=== PATIENT | female | born 1975 | race Hispanic/Latino ===

== ENCOUNTER 2019-08-01 01:29 | Emergency (ER) | payer OTHER ==
[2019-08-01] MEDS ORDERED: Lidocaine 1% w/Epinephrine 1:100K 20 ML VIAL ONE ×2 (02:19→02:41)
[2019-08-01] MEDS ORDERED: Tranexamic Acid 1,000 MG/10 ML VIAL ONE (03:09)
[2019-08-01] MEDS ORDERED: Acetaminophen 500 MG TAB ONE (04:06)
[2019-08-01] MEDS ORDERED: Ondansetron ODT 4 MG TAB ONE (04:16)
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
== END 2019-08-01 04:34 | disposition home or self-care (01) ==
LOC: ERS 01:29
DX: S02.5XXA Fracture of tooth (traumatic), initial encounter for closed fracture (principal); S01.511A Laceration without foreign body of lip, initial encounter; I10 Essential (primary) hypertension; Y04.0XXA Assault by unarmed brawl or fight, initial encounter
CPT/HCPCS: 12011; 70486; J2001; Q0162

== ENCOUNTER 2020-04-13 16:55 | Emergency (ER) | payer OTHER ==
[2020-04-13] MEDS ORDERED: HYDROcodone/Acetaminophen 5/325 mg Tablet ONE (17:16)
[2020-04-13 17:37] LABS: #Eosinphils 0.1 thou/uL (0.0-0.7); #Lymphocytes 1.3 thou/uL (1.20-3.40); #Monocytes 0.6 thou/uL (0.11-0.59); #Neutrophils 9.7 thou/uL (1.40-6.50); %Basophils 0.1 % (0.0-1.0); %Eosinophils 1.3 % (0.0-10.0); %Monocytes 5.3 % (0.0-10.0); %Neutrophils 82.4 % (42.0-75.0); Hemoglobin 7.3 g/dL (12.0-16.0); Mean Corpuscular HGB CONC 28.3 g/dL (32.0-36.0); Mean Corpuscular Hemoglobin 19.7 pg (27.0-31.0); Mean Corpuscular Volume 69.5 fL (78.0-98.0); Mean Platelet Volume 8.9 fL (7.4-10.4); Platelet Count 321 thou/uL (130-400); RBC Distribution Width 16.7 % (11.5-14.5); White Blood Cell (WBC) Count 11.7 thou/uL (4.8-10.8)
[2020-04-13 17:56] LABS: Anisocytosis SLIGHT = 6-15 cells (100X) (0-5/hpf); Hypochromia SLIGHT = 6-15 cells (100X) (0-5/hpf); MDiff Complete? YES; Ovalocytes SLIGHT = 2-5 cells (100X) (0-1/hpf); Platelet Morphology Comment Appears Adequate; Polychromasia SLIGHT = 2-3 cells (100X) (0-2/hpf); Spherocytes SLIGHT = 1-5 cells (100X) (None Seen); Tear Drops SLIGHT = 2-5 cells (100X) (0-1/hpf)
[2020-04-13 18:04] LABS: ALT (SGPT) 11 U/L (8-55); AST (SGOT) 14 U/L (5-34); Alkaline Phosphatase 211 U/L (40-110); Anion Gap 17 mmol/L (10-20); BUN (Urea Nitrogen) 44 mg/dL (7.0-18.7); Bilirubin, Total 0.5 mg/dL (0.2-1.2); Calc. Creatinine Clearance 0 mL/min (70-130); Carbon Dioxide 20 mmol/L (22-29); Chloride 101 mmol/L (98-107); Estimated GFR-MDRD 10; Globulin 4.4 g/dL (2.4-3.5); Glucose 107 mg/dL (70-105); Protein, Total 8.4 g/dL (6.0-8.3); Sodium 134 mmol/L (136-145)
--- NOTE | 2020-04-13 18:23 | RAD ---
LEFT HAND THREE VIEWS: 04/13/20 HISTORY: Injury. FINDINGS: Joint spaces are preserved. No acute fracture, dislocation, or aggressive osseous erosions. IMPRESSION: No abnormalities are demonstrated. POS: BST
== END 2020-04-13 18:47 | disposition home or self-care (01) ==
LOC: ERS 16:55
DX: M25.511 Pain in right shoulder (principal); M25.512 Pain in left shoulder; M25.541 Pain in joints of right hand; I10 Essential (primary) hypertension; D64.9 Anemia, unspecified; Z79.899 Other long term (current) drug therapy
CPT/HCPCS: 36415; 80053; 85025; 85652; 86140

== ENCOUNTER 2020-11-28 12:33 | Emergency (ER) | payer OTHER | END 2020-11-28 14:10 | disposition home or self-care (01) | LOC: ERS 12:33 | DX: L03.116 Cellulitis of left lower limb (principal); L03.115 Cellulitis of right lower limb; L25.9 Unspecified contact dermatitis, unspecified cause; M06.9 Rheumatoid arthritis, unspecified; I10 Essential (primary) hypertension; Z79.899 Other long term (current) drug therapy | CPT/HCPCS: 99283 ==

== ENCOUNTER 2022-12-14 11:56 | Inpatient (IN) | payer OTHER ==
[2022-12-14 13:23] LABS: Analyzer IN Cardio ER; Base Excess (BEa) -18.9 mEq/L (-2.0 to +3.0); Calcium, Ionized (arterial) 1.09 mmol/L (1.12-1.30); Carboxyhemoglobin (COHb) 1.8 gm% (0.0-3.0); O2 Tension (PaO2), arterial 83.1 mmHg (80.0-100.0); Potassium - ABG Lab 5.37 mmol/L (3.70-5.30)
[2022-12-14 13:28] LABS: CO2 Tension 22.6 mmHg (35.0-45.0); Puncture Site RRA; pH, Arterial 7.17 (7.35-7.45)
[2022-12-14] MEDS ORDERED: cefTRIAXone\\ROCEPHIN 2 GM VIAL ONE ×2 (13:44→14:06)
[2022-12-14] MEDS ORDERED: Azithromycin 500 MG VIAL ONE (13:44)
[2022-12-14 13:56] LABS: Hemoglobin 6.5 g/dL (12.0-16.0); Mean Corpuscular HGB CONC 31.4 g/dL (32.0-36.0); Mean Corpuscular Hemoglobin 27.2 pg (27.0-31.0); Mean Corpuscular Volume 86.8 fl (78.0-98.0); Mean Platelet Volume 7.9 fL (7.4-10.4); Platelet Count 135 10x3/uL (130-400); Red Blood Cell (RBC) Count 2.39 mill/uL (4.20-5.40); White Blood Cell (WBC) Count 28.4 10x3/uL (4.8-10.8)
[2022-12-14 14:11] LABS: Anisocytosis SLIGHT = 6-15 cells (100X) (0-5/hpf); Band 28 % (5-11); Lymphocytes 3 % (21-51); MDiff Complete? YES; Metamyelocyte 6 % (0-0); Monocytes 1 % (0-10); Myelocyte 2 % (0-0); Neutrophil 60 % (42-75); Platelet Morphology Comment Appears Adequate; Polychromasia SLIGHT = 2-3 cells (100X) (0-2/hpf)
[2022-12-14 14:12] LABS: PTT 43.7 sec (22.9-36.1)
[2022-12-14 14:13] LABS: INR-International Normal Ratio 1.5; Prothrombin Time 18.6 sec (12.0-14.7)
[2022-12-14] MEDS ORDERED: Ondansetron PF 4 MG/2 ML Vial ONE (14:16)
[2022-12-14] MEDS ORDERED: Morphine 4 MG/ML VIAL ONE ×2 (14:16→15:18)
[2022-12-14 14:20] LABS: D-Dimer Test 3.31 *mcg/mL (0.27-0.43)
[2022-12-14] MEDS ORDERED: Aspirin Chewable 81 MG TAB ONE (14:28)
[2022-12-14 14:34] LABS: ALT (SGPT) 10 U/L (8-55); AST (SGOT) 11 U/L (5-34); Albumin 3.5 g/dL (3.5-5.0); Alkaline Phosphatase 116 U/L (40-110); Anion Gap 23 mmol/L (10-20); BUN (Urea Nitrogen) 112 mg/dL (7.0-18.7); Bilirubin, Total 0.5 mg/dL (0.2-1.2); Calc. Creatinine Clearance 0 mL/min (70-130); Calcium 8.2 mg/dL (7.8-10.44); Chloride 108 mmol/L (98-107); Estimated GFR 4; Glucose 106 mg/dL (70-105); Potassium 5.5 mmol/L (3.5-5.1); Protein, Total 7.5 g/dL (6.0-8.3); Sodium 134 mmol/L (136-145)
[2022-12-14 14:52] LABS: CKMB 3.8 ng/mL (0-6.6); Carbon Dioxide 9 mmol/L (22-29)
[2022-12-14] MEDS ORDERED: Sodium Bicarb 50 MEQ/50 ML VIAL ONE (15:41)
[2022-12-14] MEDS ORDERED: Sodium Bicarbonate 150 MEQ in Dextrose 5% in Water 1,000 ML IV SCH (16:00)
[2022-12-14 16:34] VITALS: BMI 31.2
[2022-12-14] MEDS ORDERED: Ondansetron PF 4 MG/2 ML Vial IVP PRN (17:02)
[2022-12-14] MEDS ORDERED: Ipratropium/Albuterol 3 ML NEB NEB PRN (17:06)
[2022-12-14 17:37] LABS: BUN (Urea Nitrogen) 112 mg/dL (7.0-18.7); Calc. Creatinine Clearance 9 mL/min (70-130); Calcium 8.1 mg/dL (7.8-10.44); Chloride 110 mmol/L (98-107); Estimated GFR 4; Glucose 91 mg/dL (70-105); Potassium 5.4 mmol/L (3.5-5.1); Sodium 133 mmol/L (136-145)
[2022-12-14 17:40] LABS: Carbon Dioxide Less than 8 mmol/L (22-29)
[2022-12-14] MEDS: Morphine 4 MG/ML VIAL SLOW IVP PRN ×2 (18:40→22:29)
[2022-12-14] MEDS: EPOETIN ALFA-EPBX (ESRD) 10,000 UNIT/ML VIAL SC SCH (18:40)
[2022-12-14] MEDS: Sodium Bicarbonate 150 MEQ in Dextrose 5% in Water 1,000 ML IV SCH (18:41)
[2022-12-14] MEDS: Heparin 5,000 UNITS/ML VIAL SC SCH (21:25)
[2022-12-14] MEDS: Benzonatate 100 MG CAP PO PRN (21:25)
[2022-12-15 03:51] LABS: Anion Gap 21 mmol/L (10-20); BUN (Urea Nitrogen) 117 mg/dL (7.0-18.7); Calc. Creatinine Clearance 9 mL/min (70-130); Calcium 8.5 mg/dL (7.8-10.44); Carbon Dioxide 11 mmol/L (22-29); Chloride 106 mmol/L (98-107); Estimated GFR 4; Glucose 133 mg/dL (70-105); Potassium 4.9 mmol/L (3.5-5.1); Sodium 133 mmol/L (136-145)
[2022-12-15 04:46] LABS: Anisocytosis SLIGHT = 6-15 cells (100X) (0-5/hpf); Band 24 % (5-11); Hemoglobin 7.5 g/dL (12.0-16.0); Lymphocytes 8 % (21-51); MDiff Complete? YES; Mean Corpuscular Hemoglobin 28.6 pg (27.0-31.0); Mean Corpuscular Volume 86.7 fl (78.0-98.0); Mean Platelet Volume 8.1 fL (7.4-10.4); Metamyelocyte 4 % (0-0); Monocytes 2 % (0-10); Neutrophil 62 % (42-75); Platelet Count 136 10x3/uL (130-400); Platelet Morphology Comment Appears Adequate; RBC Distribution Width 14.8 % (11.5-14.5); Red Blood Cell (RBC) Count 2.64 mill/uL (4.20-5.40); White Blood Cell (WBC) Count 23.4 10x3/uL (4.8-10.8)
[2022-12-15] MEDS: Sodium Bicarbonate 150 MEQ in Dextrose 5% in Water 1,000 ML IV SCH ×2 (05:04→16:04)
[2022-12-15] MEDS: Benzonatate 100 MG CAP PO PRN (06:12)
[2022-12-15] MEDS: Aspirin 81 mg Enteric Coated Tablet PO SCH (08:28)
[2022-12-15] MEDS: Benzonatate 100 MG CAP PO SCH ×3 (08:29→21:00)
[2022-12-15] MEDS: Linezolid 600 MG in Premix Bag 1 BAG IVPB SCH ×2 (08:29→21:00)
[2022-12-15] MEDS: Carvedilol 6.25 MG TAB PO SCH ×2 (08:29→16:04)
[2022-12-15] MEDS: Ferrous Sulfate 325 MG TAB PO SCH ×2 (08:29→16:04)
[2022-12-15] MEDS: Ipratropium/Albuterol 3 ML NEB NEB SCH ×4 (08:29→23:28)
[2022-12-15] MEDS: guaiFENesin 200 MG TAB PO PRN (08:29)
[2022-12-15] MEDS: Heparin 5,000 UNITS/ML VIAL SC SCH ×3 (08:30→21:01)
[2022-12-15] MEDS ORDERED: Metoclopramide HCl 10 MG/2 ML VIAL IVP PRN (10:57)
[2022-12-15] MEDS: Morphine 4 MG/ML VIAL SLOW IVP PRN ×2 (12:20→22:03)
[2022-12-15 13:13] LABS: SARS-CoV-2 NAA Rapid Test Not Detected (NotDetected)
[2022-12-15] MEDS: cefTRIAXone\\ROCEPHIN 2 GM in Sodium Chloride 0.9% 100 ML IVPB SCH (13:58)
[2022-12-15] MEDS: Azithromycin 500 MG in Sodium Chloride 0.9% 250 ML 250 ML IVPB SCH (13:58)
[2022-12-15] MEDS: Acetaminophen 325 MG TAB PO PRN (17:53)
[2022-12-15] MEDS ORDERED: Famotidine 20 MG TAB PO SCH (21:00)
[2022-12-16] MEDS: guaiFENesin 200 MG TAB PO PRN (03:02)
[2022-12-16] MEDS: Morphine 4 MG/ML VIAL SLOW IVP PRN (03:02)
[2022-12-16] MEDS: Sodium Bicarbonate 150 MEQ in Dextrose 5% in Water 1,000 ML IV SCH ×2 (03:18→15:43)
[2022-12-16 04:35] LABS: Anion Gap 22 mmol/L (10-20); BUN (Urea Nitrogen) 120 mg/dL (7.0-18.7); Calc. Creatinine Clearance 10 mL/min (70-130); Carbon Dioxide 14 mmol/L (22-29); Chloride 100 mmol/L (98-107); Estimated GFR 4; Glucose 105 mg/dL (70-105); Potassium 4.1 mmol/L (3.5-5.1); Sodium 132 mmol/L (136-145)
[2022-12-16 05:23] LABS: Band 38 % (5-11); Hemoglobin 6.8 g/dL (12.0-16.0); Hypochromia SLIGHT = 6-15 cells (100X) (0-5/hpf); Lymphocytes 2 % (21-51); MDiff Complete? YES; Mean Corpuscular HGB CONC 32.5 g/dL (32.0-36.0); Mean Corpuscular Hemoglobin 28.4 pg (27.0-31.0); Mean Corpuscular Volume 87.6 fl (78.0-98.0); Mean Platelet Volume 8.1 fL (7.4-10.4); Metamyelocyte 1 % (0-0); Neutrophil 59 % (42-75); Platelet Count 144 10x3/uL (130-400); Platelet Morphology Comment Appears Adequate; RBC Distribution Width 14.8 % (11.5-14.5); Red Blood Cell (RBC) Count 2.38 mill/uL (4.20-5.40); White Blood Cell (WBC) Count 18.6 10x3/uL (4.8-10.8)
[2022-12-16] MEDS: Ipratropium/Albuterol 3 ML NEB NEB SCH ×3 (07:22→19:40)
[2022-12-16] MEDS: Docusate 100 MG CAP PO SCH ×2 (09:52→21:45)
[2022-12-16] MEDS: Ferrous Sulfate 325 MG TAB PO SCH ×2 (09:52→16:24)
[2022-12-16] MEDS: Polyethylene Glycol 3350 17 GM Packet PO SCH (09:52)
[2022-12-16] MEDS: Heparin 5,000 UNITS/ML VIAL SC SCH ×3 (09:52→21:43)
[2022-12-16] MEDS: Carvedilol 6.25 MG TAB PO SCH ×2 (09:53→16:23)
[2022-12-16] MEDS: Linezolid 600 MG in Premix Bag 1 BAG IVPB SCH (09:53)
[2022-12-16] MEDS: Benzonatate 100 MG CAP PO SCH ×3 (09:53→21:45)
[2022-12-16] MEDS: Aspirin 81 mg Enteric Coated Tablet PO SCH (09:53)
[2022-12-16] MEDS: cefTRIAXone\\ROCEPHIN 2 GM in Sodium Chloride 0.9% 100 ML IVPB SCH (15:43)
[2022-12-16] MEDS: Azithromycin 500 MG in Sodium Chloride 0.9% 250 ML 250 ML IVPB SCH (15:43)
[2022-12-16] MEDS: Acetaminophen 325 MG TAB PO PRN (21:50)
[2022-12-17] MEDS: Ipratropium/Albuterol 3 ML NEB NEB SCH ×4 (01:14→19:26)
[2022-12-17] MEDS: Sodium Bicarbonate 150 MEQ in Dextrose 5% in Water 1,000 ML IV SCH ×2 (02:22→20:50)
[2022-12-17 04:41] LABS: Anion Gap 21 mmol/L (10-20); BUN (Urea Nitrogen) 113 mg/dL (7.0-18.7); Calc. Creatinine Clearance 10 mL/min (70-130); Calcium 8.2 mg/dL (7.8-10.44); Carbon Dioxide 20 mmol/L (22-29); Chloride 98 mmol/L (98-107); Estimated GFR 4; Glucose 98 mg/dL (70-105); Potassium 3.8 mmol/L (3.5-5.1); Sodium 135 mmol/L (136-145)
[2022-12-17 04:59] LABS: HBSAg Index 0.19 S/CO (0-0.99); Hep B Core Total Ab Non-Reactive (NonReactive); Hep B Core Total Index 0.08 S/CO (0-0.79); Hep B Surf Ag Non-Reactive S/CO (NonReactive); Hep C IgG Ab Non-Reactive (NonReactive); Hep C Index 0.04 S/CO (0-0.79)
[2022-12-17 05:06] LABS: HBSAB Concentration 19.89 mIU/mL; Hep B Surf AB Reactive (NonReactive)
[2022-12-17 05:09] LABS: Anisocytosis SLIGHT = 6-15 cells (100X) (0-5/hpf); Band 11 % (5-11); Hemoglobin 7.3 g/dL (12.0-16.0); Lymphocytes 9 % (21-51); MDiff Complete? YES; Mean Corpuscular HGB CONC 33.1 g/dL (32.0-36.0); Mean Corpuscular Volume 87.6 fl (78.0-98.0); Mean Platelet Volume 8.5 fL (7.4-10.4); Monocytes 1 % (0-10); Neutrophil 79 % (42-75); Platelet Count 169 10x3/uL (130-400); Platelet Morphology Comment Appears Adequate; RBC Distribution Width 14.8 % (11.5-14.5); Red Blood Cell (RBC) Count 2.53 mill/uL (4.20-5.40); White Blood Cell (WBC) Count 15.8 10x3/uL (4.8-10.8)
[2022-12-17] MEDS: Acetaminophen 325 MG TAB PO PRN ×3 (05:44→20:52)
[2022-12-17] MEDS: Benzonatate 100 MG CAP PO SCH ×3 (09:30→20:50)
[2022-12-17] MEDS: Carvedilol 6.25 MG TAB PO SCH ×3 (09:30→20:50)
[2022-12-17] MEDS: Aspirin 81 mg Enteric Coated Tablet PO SCH (09:31)
[2022-12-17] MEDS: Ferrous Sulfate 325 MG TAB PO SCH ×2 (09:32→17:16)
[2022-12-17] MEDS: Docusate 100 MG CAP PO SCH ×2 (09:32→20:51)
[2022-12-17] MEDS: Heparin 5,000 UNITS/ML VIAL SC SCH ×3 (09:33→20:51)
[2022-12-17] MEDS: Polyethylene Glycol 3350 17 GM Packet PO SCH (09:34)
[2022-12-17] MEDS ORDERED: Fentanyl 100 MCG/2 ML VIAL SLOW IVP PRN (12:56)
[2022-12-17] MEDS ORDERED: HYDROcodone/Acetaminophen 5/325 mg Tablet PO PRN (12:56)
[2022-12-17] MEDS ORDERED: Cepastat Lozenges 1 LOZ PO PRN (12:57)
[2022-12-17] MEDS ORDERED: Chloraseptic Spray 180 ml Bottle PO PRN (12:57)
[2022-12-17] MEDS ORDERED: Famotidine 20 MG TAB PO SCH ×2 (13:00→21:00)
[2022-12-17] MEDS: Ondansetron ODT 4 MG TAB PO PRN (13:25)
[2022-12-17] MEDS: Calcium Carbonate 500 MG ChewTAB PO PRN ×2 (13:25→18:03)
[2022-12-17] MEDS: cefTRIAXone\\ROCEPHIN 2 GM in Sodium Chloride 0.9% 100 ML IVPB SCH (13:28)
[2022-12-17] MEDS ORDERED: Labetalol HCl 100 MG/20 ML VIAL SLOW IVP PRN (13:35)
[2022-12-17] MEDS: hydrALAZINE 25 MG TAB PO SCH ×2 (13:46→20:51)
[2022-12-17] MEDS: Triple Antibiotic Oint 1 GM Packet TOP SCH ×2 (17:16→20:52)
[2022-12-17] MEDS: guaiFENesin ER 600 MG TAB PO SCH (20:51)
[2022-12-17] MEDS: Nystatin Powder 15 GM BOT TOP SCH (23:32)
[2022-12-18] MEDS: Ipratropium/Albuterol 3 ML NEB NEB SCH ×4 (00:46→15:54)
[2022-12-18] MEDS: Ondansetron PF 4 MG/2 ML Vial IVP PRN ×2 (03:31→14:50)
[2022-12-18] MEDS: Acetaminophen 325 MG TAB PO PRN ×3 (03:35→21:47)
[2022-12-18 04:40] LABS: Anion Gap 19 mmol/L (10-20); BUN (Urea Nitrogen) 114 mg/dL (7.0-18.7); Calc. Creatinine Clearance 10 mL/min (70-130); Carbon Dioxide 23 mmol/L (22-29); Chloride 95 mmol/L (98-107); Estimated GFR 5; Glucose 105 mg/dL (70-105); Potassium 3.6 mmol/L (3.5-5.1); Sodium 133 mmol/L (136-145)
[2022-12-18] MEDS: Sodium Bicarbonate 150 MEQ in Dextrose 5% in Water 1,000 ML IV SCH (04:40)
[2022-12-18 04:58] LABS: Hemoglobin 7.7 g/dL (12.0-16.0); MDiff Complete? YES; Mean Corpuscular HGB CONC 32.1 g/dL (32.0-36.0); Mean Corpuscular Hemoglobin 28.3 pg (27.0-31.0); Mean Corpuscular Volume 88.2 fl (78.0-98.0); Mean Platelet Volume 7.9 fL (7.4-10.4); Platelet Count 185 10x3/uL (130-400); RBC Distribution Width 14.6 % (11.5-14.5); Red Blood Cell (RBC) Count 2.71 mill/uL (4.20-5.40); White Blood Cell (WBC) Count 12.6 10x3/uL (4.8-10.8)
[2022-12-18 04:59] LABS: Band 2 % (5-11); Eosinophils 3 % (0-10); Hypochromia SLIGHT = 6-15 cells (100X) (0-5/hpf); Lymphocytes 7 % (21-51); Monocytes 4 % (0-10); Neutrophil 84 % (42-75); Platelet Morphology Comment Appears Adequate
[2022-12-18] MEDS: hydrALAZINE 25 MG TAB PO SCH ×3 (08:59→21:45)
[2022-12-18] MEDS: Saccharomyces boulardii 250 MG CAP PO SCH (09:01)
[2022-12-18] MEDS: Aspirin 81 mg Enteric Coated Tablet PO SCH (09:01)
[2022-12-18] MEDS: Docusate 100 MG CAP PO SCH ×2 (09:01→21:45)
[2022-12-18] MEDS: Ferrous Sulfate 325 MG TAB PO SCH (09:01)
[2022-12-18] MEDS: guaiFENesin ER 600 MG TAB PO SCH ×2 (09:02→21:45)
[2022-12-18] MEDS: Benzonatate 100 MG CAP PO SCH ×3 (09:02→21:45)
[2022-12-18] MEDS: Triple Antibiotic Oint 1 GM Packet TOP SCH ×3 (09:02→21:46)
[2022-12-18] MEDS: Heparin 5,000 UNITS/ML VIAL SC SCH ×3 (09:03→21:45)
[2022-12-18] MEDS: Sodium Bicarbonate Tab 325 MG TAB PO SCH ×2 (09:10→21:46)
[2022-12-18] MEDS: Polyethylene Glycol 3350 17 GM Packet PO SCH (09:11)
[2022-12-18] MEDS: cefTRIAXone\\ROCEPHIN 2 GM in Sodium Chloride 0.9% 100 ML IVPB SCH (14:51)
[2022-12-18] MEDS: Nystatin Powder 15 GM BOT TOP SCH ×2 (14:51→21:46)
[2022-12-18] MEDS ORDERED: CEFAZOLIN 2 GM in Sodium Chloride 0.9% 100 ML IVPB SCH (15:30)
[2022-12-18] MEDS ORDERED: Ipratropium/Albuterol 3 ML NEB ONE (15:53)
[2022-12-18] MEDS: Carvedilol 25 MG TAB PO SCH (16:30)
[2022-12-18] MEDS: Aspirin/APAP/Caffeine Tab (Excedrin Migraine) PO PRN (17:33)
[2022-12-18] MEDS: Famotidine 20 MG TAB PO SCH (21:45)
[2022-12-19] MEDS: Ipratropium/Albuterol 3 ML NEB NEB SCH ×4 (00:10→19:17)
[2022-12-19 05:17] LABS: Phosphorus 8.6 mg/dL (2.3-4.7)
[2022-12-19 05:19] LABS: Anion Gap 22 mmol/L (10-20); BUN (Urea Nitrogen) 118 mg/dL (7.0-18.7); Calc. Creatinine Clearance 10 mL/min (70-130); Calcium 8.4 mg/dL (7.8-10.44); Carbon Dioxide 22 mmol/L (22-29); Chloride 96 mmol/L (98-107); Estimated GFR 4; Glucose 93 mg/dL (70-105); Potassium 3.8 mmol/L (3.5-5.1); Sodium 136 mmol/L (136-145)
[2022-12-19 05:40] LABS: Band 1 % (5-11); Hemoglobin 8.1 g/dL (12.0-16.0); Lymphocytes 8 % (21-51); MDiff Complete? YES; Mean Corpuscular HGB CONC 32.3 g/dL (32.0-36.0); Mean Corpuscular Hemoglobin 28.6 pg (27.0-31.0); Mean Corpuscular Volume 88.6 fl (78.0-98.0); Monocytes 5 % (0-10); Neutrophil 86 % (42-75); Platelet Count 199 10x3/uL (130-400); Platelet Morphology Comment Appears Adequate; RBC Distribution Width 14.6 % (11.5-14.5); Red Blood Cell (RBC) Count 2.83 mill/uL (4.20-5.40); Schistocytes SLIGHT = 2-5 cells (100X) (0-1/hpf); White Blood Cell (WBC) Count 13.7 10x3/uL (4.8-10.8)
[2022-12-19] MEDS: Carvedilol 25 MG TAB PO SCH ×2 (05:55→16:41)
[2022-12-19] MEDS: hydrALAZINE 25 MG TAB PO SCH ×3 (08:18→22:00)
[2022-12-19] MEDS: Benzonatate 100 MG CAP PO SCH ×3 (08:24→21:59)
[2022-12-19] MEDS: guaiFENesin ER 600 MG TAB PO SCH ×2 (08:24→22:00)
[2022-12-19] MEDS ORDERED: Midazolam HCl 2 mg/2 ml Vial ONE (10:51)
[2022-12-19] MEDS ORDERED: fentaNYL PF 100 MCG/2 ML SYRINGE ONE (10:52)
[2022-12-19] MEDS ORDERED: Propofol 500 MG/50 ML VIAL ONE (10:52)
[2022-12-19] MEDS ORDERED: Lidocaine 2% PF 5 ML VIAL ONE (10:54)
[2022-12-19] MEDS ORDERED: Heparin 10,000 UNITS/ 10 ML VIAL ONE ×2 (10:54→13:58)
[2022-12-19] MEDS ORDERED: Bupivacaine HCl 0.5%/Epinephrine 1:200,000/PF 30 ml Vial ONE (10:54)
[2022-12-19] MEDS ORDERED: CEFAZOLIN 2 GM VIAL ONE (11:19)
[2022-12-19] MEDS ORDERED: Sodium Chloride 0.9% 100 ML ONE (11:19)
[2022-12-19] MEDS ORDERED: Lidocaine 1% PF 5 ML VIAL ONE (11:30)
[2022-12-19] MEDS ORDERED: PROPOFOL 200 MG/20 ML VIAL ONE (11:30)
[2022-12-19] MEDS ORDERED: Promethazine HCl 25 MG/ML VIAL IM PRN (12:13)
[2022-12-19] MEDS ORDERED: Ondansetron HCl/PF 4 MG/2 ML Vial IVP PRN (12:13)
[2022-12-19] MEDS: Sevelamer Carbonate 800 MG TAB PO SCH ×3 (16:02→16:41)
[2022-12-19] MEDS: Docusate 100 MG CAP PO SCH ×2 (16:03→21:59)
[2022-12-19] MEDS: Polyethylene Glycol 3350 17 GM Packet PO SCH (16:04)
[2022-12-19] MEDS: Triple Antibiotic Oint 1 GM Packet TOP SCH ×3 (16:06→22:01)
[2022-12-19] MEDS: Heparin 5,000 UNITS/ML VIAL SC SCH ×3 (16:06→22:00)
[2022-12-19] MEDS: Aspirin 81 mg Enteric Coated Tablet PO SCH (16:14)
[2022-12-19] MEDS: Nystatin Powder 15 GM BOT TOP SCH ×2 (16:15→22:01)
[2022-12-19] MEDS: Saccharomyces boulardii 250 MG CAP PO SCH (16:15)
[2022-12-19] MEDS: Sodium Bicarbonate Tab 325 MG TAB PO SCH ×2 (16:16→22:01)
[2022-12-19] MEDS: cefTRIAXone\\ROCEPHIN 2 GM in Sodium Chloride 0.9% 100 ML IVPB SCH (16:16)
[2022-12-19] MEDS: Acetaminophen 325 MG TAB PO PRN (16:36)
[2022-12-19] MEDS: Ondansetron ODT 4 MG TAB PO PRN (16:36)
[2022-12-19] MEDS: Aspirin/APAP/Caffeine Tab (Excedrin Migraine) PO PRN (17:49)
[2022-12-19] MEDS: Famotidine 20 MG TAB PO SCH (21:59)
[2022-12-19] MEDS: Acetaminophen 500 MG TAB PO SCH (22:04)
[2022-12-20] MEDS: Ipratropium/Albuterol 3 ML NEB NEB SCH ×4 (00:33→18:29)
[2022-12-20] MEDS: Aspirin/APAP/Caffeine Tab (Excedrin Migraine) PO PRN (00:57)
[2022-12-20] MEDS ORDERED: Morphine 2 MG/ML VIAL SLOW IVP SCH ×2 (05:15→22:45)
[2022-12-20 05:41] LABS: Anion Gap 19 mmol/L (10-20); BUN (Urea Nitrogen) 95 mg/dL (7.0-18.7); Calc. Creatinine Clearance 12 mL/min (70-130); Calcium 8.2 mg/dL (7.8-10.44); Carbon Dioxide 24 mmol/L (22-29); Chloride 97 mmol/L (98-107); Estimated GFR 5; Glucose 94 mg/dL (70-105); Potassium 3.7 mmol/L (3.5-5.1); Sodium 136 mmol/L (136-145)
[2022-12-20 05:50] LABS: Hemoglobin 8.1 g/dL (12.0-16.0); MDiff Complete? YES; Mean Corpuscular HGB CONC 32.5 g/dL (32.0-36.0); Mean Corpuscular Hemoglobin 29.2 pg (27.0-31.0); Mean Corpuscular Volume 89.6 fl (78.0-98.0); Mean Platelet Volume 7.6 fL (7.4-10.4); Platelet Count 199 10x3/uL (130-400); RBC Distribution Width 14.8 % (11.5-14.5); Red Blood Cell (RBC) Count 2.78 mill/uL (4.20-5.40); White Blood Cell (WBC) Count 13.2 10x3/uL (4.8-10.8)
[2022-12-20 05:51] LABS: Band 6 % (5-11); Hypochromia SLIGHT = 6-15 cells (100X) (0-5/hpf); Lymphocytes 5 % (21-51); Monocytes 8 % (0-10); Neutrophil 81 % (42-75); Nucleated RBC 1 % (0); Platelet Morphology Comment Appears Adequate
[2022-12-20] MEDS: hydrALAZINE 25 MG TAB PO SCH ×3 (08:57→20:51)
[2022-12-20] MEDS: Sodium Bicarbonate Tab 325 MG TAB PO SCH ×2 (08:57→20:52)
[2022-12-20] MEDS: Ferrous Gluconate 324 MG TAB PO SCH (08:57)
[2022-12-20] MEDS: Saccharomyces boulardii 250 MG CAP PO SCH (08:57)
[2022-12-20] MEDS: Benzonatate 100 MG CAP PO SCH ×3 (08:58→20:49)
[2022-12-20] MEDS: Carvedilol 25 MG TAB PO SCH ×2 (08:58→18:03)
[2022-12-20] MEDS: Docusate 100 MG CAP PO SCH ×2 (08:58→20:48)
[2022-12-20] MEDS: Triple Antibiotic Oint 1 GM Packet TOP SCH ×3 (08:58→20:51)
[2022-12-20] MEDS: Heparin 5,000 UNITS/ML VIAL SC SCH ×3 (08:58→20:50)
[2022-12-20] MEDS: Sevelamer Carbonate 800 MG TAB PO SCH ×3 (08:58→17:59)
[2022-12-20] MEDS: Calcitriol 0.25 MCG CAP PO SCH (08:58)
[2022-12-20] MEDS: guaiFENesin ER 600 MG TAB PO SCH ×2 (08:58→20:49)
[2022-12-20] MEDS: Aspirin 81 mg Enteric Coated Tablet PO SCH (08:58)
[2022-12-20] MEDS: Nystatin Powder 15 GM BOT TOP SCH ×2 (08:59→20:52)
[2022-12-20] MEDS: Polyethylene Glycol 3350 17 GM Packet PO SCH (08:59)
[2022-12-20] MEDS: Acetaminophen 500 MG TAB PO SCH ×3 (08:59→20:48)
[2022-12-20] MEDS ORDERED: Heparin 10,000 UNITS/ 10 ML VIAL ONE (14:00)
[2022-12-20] MEDS: cefTRIAXone\\ROCEPHIN 2 GM in Sodium Chloride 0.9% 100 ML IVPB SCH (15:30)
[2022-12-20] MEDS: Famotidine 20 MG TAB PO SCH (20:49)
[2022-12-20] MEDS: Calcium Carbonate 500 MG ChewTAB PO PRN (20:54)
[2022-12-21] MEDS: Ipratropium/Albuterol 3 ML NEB NEB SCH ×6 (00:45→23:29)
[2022-12-21 05:02] LABS: Hemoglobin 7.4 g/dL (12.0-16.0); Mean Corpuscular HGB CONC 31.1 g/dL (32.0-36.0); Mean Corpuscular Hemoglobin 28.4 pg (27.0-31.0); Mean Corpuscular Volume 91.1 fl (78.0-98.0); Mean Platelet Volume 7.6 fL (7.4-10.4); Platelet Count 167 10x3/uL (130-400); RBC Distribution Width 14.6 % (11.5-14.5); Red Blood Cell (RBC) Count 2.61 mill/uL (4.20-5.40); White Blood Cell (WBC) Count 14.6 10x3/uL (4.8-10.8)
[2022-12-21 05:23] LABS: Anion Gap 16 mmol/L (10-20); BUN (Urea Nitrogen) 64 mg/dL (7.0-18.7); Calc. Creatinine Clearance 15 mL/min (70-130); Calcium 8.5 mg/dL (7.8-10.44); Carbon Dioxide 27 mmol/L (22-29); Chloride 98 mmol/L (98-107); Estimated GFR 7; Glucose 103 mg/dL (70-105); Potassium 3.5 mmol/L (3.5-5.1); Sodium 137 mmol/L (136-145)
[2022-12-21 06:15] LABS: Anisocytosis SLIGHT = 6-15 cells (100X) (0-5/hpf); Band 1 % (5-11); Eosinophils 1 % (0-10); Hypochromia SLIGHT = 6-15 cells (100X) (0-5/hpf); Lymphocytes 7 % (21-51); MDiff Complete? YES; Metamyelocyte 1 % (0-0); Monocytes 4 % (0-10); Neutrophil 86 % (42-75); Ovalocytes SLIGHT = 2-5 cells (100X) (0-1/hpf); Platelet Morphology Comment Appears Adequate; Polychromasia SLIGHT = 2-3 cells (100X) (0-2/hpf); Tear Drops SLIGHT = 2-5 cells (100X) (0-1/hpf)
[2022-12-21] MEDS: Aspirin/APAP/Caffeine Tab (Excedrin Migraine) PO PRN (06:43)
[2022-12-21] MEDS ORDERED: Iron Sucrose Complex 100 MG in Sodium Chloride 0.9% 100 ML IVPB SCH ×3 (07:15→21:15)
[2022-12-21] MEDS ORDERED: Iron, Sodium Ferric Gluconate 125 MG in Sodium Chloride 0.9% 100 ML IVPB SCH ×2 (12:00→22:00)
[2022-12-21] MEDS: guaiFENesin ER 600 MG TAB PO SCH ×2 (12:36→22:19)
[2022-12-21] MEDS: Sodium Bicarbonate Tab 325 MG TAB PO SCH ×2 (12:37→22:35)
[2022-12-21] MEDS: Calcitriol 0.25 MCG CAP PO SCH (12:37)
[2022-12-21] MEDS: Aspirin 81 mg Enteric Coated Tablet PO SCH (12:37)
[2022-12-21] MEDS: Acetaminophen 500 MG TAB PO SCH ×3 (12:37→22:18)
[2022-12-21] MEDS: Saccharomyces boulardii 250 MG CAP PO SCH (12:37)
[2022-12-21] MEDS: Benzonatate 100 MG CAP PO SCH ×3 (12:37→22:18)
[2022-12-21] MEDS: Sevelamer Carbonate 800 MG TAB PO SCH ×3 (12:37→16:32)
[2022-12-21] MEDS: Carvedilol 25 MG TAB PO SCH ×2 (12:37→16:32)
[2022-12-21] MEDS: hydrALAZINE 25 MG TAB PO SCH ×2 (12:38→16:33)
[2022-12-21] MEDS: Docusate 100 MG CAP PO SCH ×2 (12:38→22:18)
[2022-12-21] MEDS: Heparin 5,000 UNITS/ML VIAL SC SCH ×3 (12:38→22:19)
[2022-12-21] MEDS: Nystatin Powder 15 GM BOT TOP SCH ×2 (12:39→22:22)
[2022-12-21] MEDS: Polyethylene Glycol 3350 17 GM Packet PO SCH (12:39)
[2022-12-21] MEDS: Triple Antibiotic Oint 1 GM Packet TOP SCH ×3 (12:39→22:22)
[2022-12-21] MEDS: Ferrous Gluconate 324 MG TAB PO SCH (12:47)
[2022-12-21] MEDS: Calcium Carbonate 500 MG ChewTAB PO PRN (12:47)
[2022-12-21] MEDS ORDERED: Heparin 10,000 UNITS/ 10 ML VIAL ONE (13:47)
[2022-12-21] MEDS: cefTRIAXone\\ROCEPHIN 2 GM in Sodium Chloride 0.9% 100 ML IVPB SCH (16:31)
[2022-12-21] MEDS: EPOETIN ALFA-EPBX (ESRD) 10,000 UNIT/ML VIAL SC SCH (16:31)
[2022-12-21] MEDS: Famotidine 20 MG TAB PO SCH (22:19)
[2022-12-22] MEDS: Aspirin/APAP/Caffeine Tab (Excedrin Migraine) PO PRN ×2 (04:22→12:22)
[2022-12-22] MEDS: Acetaminophen 500 MG TAB PO SCH ×3 (04:36→21:18)
[2022-12-22 05:10] LABS: Hemoglobin 7.5 g/dL (12.0-16.0); Mean Corpuscular HGB CONC 31.1 g/dL (32.0-36.0); Mean Corpuscular Hemoglobin 28.5 pg (27.0-31.0); Mean Corpuscular Volume 91.6 fl (78.0-98.0); Mean Platelet Volume 7.4 fL (7.4-10.4); Platelet Count 192 10x3/uL (130-400); RBC Distribution Width 14.2 % (11.5-14.5); Red Blood Cell (RBC) Count 2.64 mill/uL (4.20-5.40); White Blood Cell (WBC) Count 16.8 10x3/uL (4.8-10.8)
[2022-12-22 05:32] LABS: Anion Gap 14 mmol/L (10-20); BUN (Urea Nitrogen) 40 mg/dL (7.0-18.7); Calc. Creatinine Clearance 20 mL/min (70-130); Calcium 8.7 mg/dL (7.8-10.44); Carbon Dioxide 29 mmol/L (22-29); Chloride 98 mmol/L (98-107); Estimated GFR 9; Glucose 82 mg/dL (70-105); Potassium 3.7 mmol/L (3.5-5.1); Sodium 137 mmol/L (136-145)
[2022-12-22 05:52] LABS: Band 3 % (5-11); Lymphocytes 11 % (21-51); MDiff Complete? YES; Monocytes 2 % (0-10); Myelocyte 2 % (0-0); Neutrophil 82 % (42-75)
[2022-12-22] MEDS: Ipratropium/Albuterol 3 ML NEB NEB SCH ×3 (07:28→19:05)
[2022-12-22] MEDS ORDERED: Heparin 10,000 UNITS/ 10 ML VIAL ONE (13:41)
[2022-12-22] MEDS: Sevelamer Carbonate 800 MG TAB PO SCH ×2 (15:35→15:52)
[2022-12-22] MEDS: Carvedilol 25 MG TAB PO SCH ×2 (15:35→15:54)
[2022-12-22] MEDS: Heparin 5,000 UNITS/ML VIAL SC SCH ×3 (15:36→21:21)
[2022-12-22] MEDS: Benzonatate 100 MG CAP PO SCH ×3 (15:36→21:21)
[2022-12-22] MEDS: guaiFENesin ER 600 MG TAB PO SCH ×2 (15:36→21:20)
[2022-12-22] MEDS: Triple Antibiotic Oint 1 GM Packet TOP SCH ×3 (15:36→21:21)
[2022-12-22] MEDS: Docusate 100 MG CAP PO SCH ×2 (15:36→21:19)
[2022-12-22] MEDS: Polyethylene Glycol 3350 17 GM Packet PO SCH (15:37)
[2022-12-22] MEDS: Nystatin Powder 15 GM BOT TOP SCH ×2 (15:37→21:21)
[2022-12-22] MEDS: cefTRIAXone\\ROCEPHIN 2 GM in Sodium Chloride 0.9% 100 ML IVPB SCH (15:51)
[2022-12-22] MEDS: NIFEdipine XL 60 MG TAB PO SCH (15:51)
[2022-12-22] MEDS: Calcitriol 0.25 MCG CAP PO SCH (15:52)
[2022-12-22] MEDS: Sodium Bicarbonate Tab 325 MG TAB PO SCH ×2 (15:52→21:20)
[2022-12-22] MEDS: Saccharomyces boulardii 250 MG CAP PO SCH (15:52)
[2022-12-22] MEDS: Aspirin 81 mg Enteric Coated Tablet PO SCH (15:52)
[2022-12-22] MEDS: Ferrous Gluconate 324 MG TAB PO SCH (15:52)
[2022-12-22] MEDS: Calcium Carbonate 500 MG ChewTAB PO PRN (16:12)
[2022-12-22] MEDS: Famotidine 20 MG TAB PO SCH (21:20)
[2022-12-23] MEDS: Ipratropium/Albuterol 3 ML NEB NEB SCH ×5 (00:28→23:28)
[2022-12-23] MEDS: Aspirin/APAP/Caffeine Tab (Excedrin Migraine) PO PRN (02:05)
[2022-12-23 07:32] LABS: Anion Gap 13 mmol/L (10-20); BUN (Urea Nitrogen) 22 mg/dL (7.0-18.7); Calc. Creatinine Clearance 26 mL/min (70-130); Calcium 8.2 mg/dL (7.8-10.44); Carbon Dioxide 27 mmol/L (22-29); Chloride 103 mmol/L (98-107); Estimated GFR 13; Glucose 92 mg/dL (70-105); Potassium 3.5 mmol/L (3.5-5.1); Sodium 139 mmol/L (136-145)
[2022-12-23 09:04] LABS: Band 5 % (5-11); Eosinophils 1 % (0-10); Hemoglobin 7.4 g/dL (12.0-16.0); Hypochromia SLIGHT = 6-15 cells (100X) (0-5/hpf); Lymphocytes 7 % (21-51); MDiff Complete? YES; Mean Corpuscular HGB CONC 30.6 g/dL (32.0-36.0); Mean Corpuscular Hemoglobin 28.3 pg (27.0-31.0); Mean Corpuscular Volume 92.4 fl (78.0-98.0); Mean Platelet Volume 7.3 fL (7.4-10.4); Metamyelocyte 1 % (0-0); Monocytes 2 % (0-10); Neutrophil 82 % (42-75); Ovalocytes SLIGHT = 2-5 cells (100X) (0-1/hpf); Platelet Count 213 10x3/uL (130-400); Platelet Morphology Comment Appears Adequate; Polychromasia SLIGHT = 2-3 cells (100X) (0-2/hpf); RBC Distribution Width 14.1 % (11.5-14.5); Reactive Lymphocytes 1 % (0-10); Red Blood Cell (RBC) Count 2.62 mill/uL (4.20-5.40); Tear Drops SLIGHT = 2-5 cells (100X) (0-1/hpf); White Blood Cell (WBC) Count 20.2 10x3/uL (4.8-10.8)
[2022-12-23] MEDS: Benzonatate 100 MG CAP PO SCH ×3 (10:59→20:08)
[2022-12-23] MEDS: Acetaminophen 500 MG TAB PO SCH ×3 (10:59→20:08)
[2022-12-23] MEDS: guaiFENesin ER 600 MG TAB PO SCH ×2 (11:01→20:08)
[2022-12-23] MEDS: Ferrous Gluconate 324 MG TAB PO SCH (11:01)
[2022-12-23] MEDS: Carvedilol 25 MG TAB PO SCH ×2 (11:01→16:53)
[2022-12-23] MEDS: Aspirin 81 mg Enteric Coated Tablet PO SCH (11:02)
[2022-12-23] MEDS: Saccharomyces boulardii 250 MG CAP PO SCH (11:02)
[2022-12-23] MEDS: Calcitriol 0.25 MCG CAP PO SCH (11:02)
[2022-12-23] MEDS: NIFEdipine XL 60 MG TAB PO SCH (11:03)
[2022-12-23] MEDS: Heparin 5,000 UNITS/ML VIAL SC SCH ×3 (11:04→20:11)
[2022-12-23] MEDS: Sevelamer Carbonate 800 MG TAB PO SCH ×3 (11:04→16:53)
[2022-12-23] MEDS: Triple Antibiotic Oint 1 GM Packet TOP SCH ×3 (11:06→20:09)
[2022-12-23] MEDS: Polyethylene Glycol 3350 17 GM Packet PO SCH (14:10)
[2022-12-23] MEDS: Docusate 100 MG CAP PO SCH ×2 (14:10→20:08)
[2022-12-23] MEDS: Sodium Bicarbonate Tab 325 MG TAB PO SCH ×2 (14:11→20:08)
[2022-12-23] MEDS: cefTRIAXone\\ROCEPHIN 2 GM in Sodium Chloride 0.9% 100 ML IVPB SCH (14:11)
[2022-12-23] MEDS: Nystatin Powder 15 GM BOT TOP SCH ×2 (14:11→20:09)
[2022-12-23] MEDS ORDERED: diphenhydrAMINE 25 MG CAP PO SCH (19:30)
[2022-12-23] MEDS: Famotidine 20 MG TAB PO SCH (20:08)
[2022-12-24] MEDS: Aspirin/APAP/Caffeine Tab (Excedrin Migraine) PO PRN (01:35)
[2022-12-24] MEDS ORDERED: Heparin 5,000 UNITS/ML VIAL ONE (06:54)
[2022-12-24] MEDS ORDERED: Lidocaine 2% PF 5 ML VIAL ONE (06:54)
[2022-12-24] MEDS ORDERED: Protamine Sulfate 50 MG/5 ML VIAL ONE (06:54)
[2022-12-24] MEDS ORDERED: Bupivacaine/Epinephrine 0.25% 30 ML VIAL ONE (06:54)
[2022-12-24] MEDS ORDERED: Heparin 10,000 UNITS/ 10 ML VIAL ONE (06:54)
[2022-12-24] MEDS ORDERED: Phenylephrine 10 MG/ML VIAL ONE (07:15)
[2022-12-24] MEDS ORDERED: fentaNYL PF 100 MCG/2 ML SYRINGE ONE (07:15)
[2022-12-24] MEDS ORDERED: Famotidine/PF 20 mg/2ml Vial ONE (07:15)
[2022-12-24] MEDS ORDERED: SUGAMMADEX SODIUM 200 MG/2 ML VIAL ONE (07:15)
[2022-12-24] MEDS: Ipratropium/Albuterol 3 ML NEB NEB SCH ×4 (07:30→23:23)
[2022-12-24] MEDS ORDERED: PHENYLEPHRINE-NS 100 MCG/ML 10 ML SYRINGE ONE (07:39)
[2022-12-24] MEDS ORDERED: Albuterol HFA (OR) 200 PUFF INH ONE (07:39)
[2022-12-24] MEDS ORDERED: Lidocaine 1% PF 5 ML VIAL ONE (07:39)
[2022-12-24] MEDS ORDERED: diphenhydrAMINE 50 MG/ML VIAL ONE (07:39)
[2022-12-24] MEDS ORDERED: Rocuronium Bromide 10 MG/ML (10ML VIAL) ONE (07:39)
[2022-12-24] MEDS ORDERED: Promethazine HCl 25 MG/ML VIAL IM PRN (09:48)
[2022-12-24] MEDS ORDERED: HYDROcodone/Acetaminophen 5/325 mg Tablet PO PRN (10:57)
[2022-12-24] MEDS: Saccharomyces boulardii 250 MG CAP PO SCH (10:58)
[2022-12-24] MEDS: Sevelamer Carbonate 800 MG TAB PO SCH ×3 (10:58→16:21)
[2022-12-24] MEDS: Sodium Bicarbonate Tab 325 MG TAB PO SCH ×2 (10:58→21:11)
[2022-12-24] MEDS: NIFEdipine XL 60 MG TAB PO SCH (10:58)
[2022-12-24] MEDS: Acetaminophen 500 MG TAB PO SCH ×3 (10:58→21:11)
[2022-12-24] MEDS: Docusate 100 MG CAP PO SCH ×2 (10:59→21:13)
[2022-12-24] MEDS: Aspirin 81 mg Enteric Coated Tablet PO SCH (10:59)
[2022-12-24] MEDS: guaiFENesin ER 600 MG TAB PO SCH ×2 (10:59→21:13)
[2022-12-24] MEDS: Heparin 5,000 UNITS/ML VIAL SC SCH ×3 (10:59→21:11)
[2022-12-24] MEDS: Calcitriol 0.25 MCG CAP PO SCH (10:59)
[2022-12-24] MEDS: Nystatin Powder 15 GM BOT TOP SCH ×2 (11:00→21:14)
[2022-12-24] MEDS: Polyethylene Glycol 3350 17 GM Packet PO SCH (11:00)
[2022-12-24] MEDS: Triple Antibiotic Oint 1 GM Packet TOP SCH ×3 (11:00→21:11)
[2022-12-24] MEDS: Calcium Carbonate 500 MG ChewTAB PO PRN (11:23)
[2022-12-24] MEDS: Ferrous Gluconate 324 MG TAB PO SCH (11:23)
[2022-12-24] MEDS: Carvedilol 25 MG TAB PO SCH ×2 (11:23→16:21)
[2022-12-24] MEDS: Benzonatate 100 MG CAP PO SCH ×3 (11:23→21:15)
[2022-12-24 12:31] LABS: Pleural Fluid, Protein 4.6 g/dL
[2022-12-24 12:53] LABS: RBC Count-Automated (BF) 2928 /cu.mm; WBC/Nucleated-Auto (BF) 2925 /cu.mm
[2022-12-24 12:54] LABS: BF Color Pink; Body Fluid Source Thoracentesis Fluid; Clarity Cloudy/Turbid (Clear); Tube # 3
[2022-12-24 12:55] LABS: Fluid, pH - Pleural Fld Greater than 7.50 (7.60 - 7.66)
[2022-12-24] MEDS ORDERED: Morphine 4 MG/ML VIAL SLOW IVP PRN (13:04)
[2022-12-24] MEDS ORDERED: Morphine 4 MG/ML VIAL SLOW IVP SCH (13:15)
[2022-12-24 13:17] LABS: #Eosinphils 0.3 thou/uL (0.0-0.7); #Lymphocytes 1.7 thou/uL (1.20-3.40); #Monocytes 0.7 thou/uL (0.11-0.59); #Neutrophils 13.6 thou/uL (1.40-6.50); %Basophils 0.1 % (0.0-1.0); %Eosinophils 1.7 % (0.0-10.0); %Lymphocytes 10.2 % (21.0-51.0); %Monocytes 4.5 % (0.0-10.0); %Neutrophils 83.5 % (42.0-75.0); Hemoglobin 7.2 g/dL (12.0-16.0); Mean Corpuscular Hemoglobin 28.5 pg (27.0-31.0); Mean Corpuscular Volume 92.2 fl (78.0-98.0); Mean Platelet Volume 6.8 fL (7.4-10.4); Platelet Count 223 10x3/uL (130-400); Red Blood Cell (RBC) Count 2.51 mill/uL (4.20-5.40); White Blood Cell (WBC) Count 16.2 10x3/uL (4.8-10.8)
[2022-12-24 13:20] LABS: BF Segmented Neutrophils 88 %; Cell Count Non Hematic 11 %; Lymphocytes 1 %
[2022-12-24 13:39] LABS: Anion Gap 14 mmol/L (10-20); BUN (Urea Nitrogen) 34 mg/dL (7.0-18.7); Calc. Creatinine Clearance 18 mL/min (70-130); Calcium 8.2 mg/dL (7.8-10.44); Carbon Dioxide 27 mmol/L (22-29); Chloride 102 mmol/L (98-107); Estimated GFR 8; Glucose 85 mg/dL (70-105); Potassium 3.8 mmol/L (3.5-5.1); Sodium 139 mmol/L (136-145)
[2022-12-24] MEDS ORDERED: CEFAZOLIN 2 GM in Sodium Chloride 0.9% 100 ML IVPB SCH (14:00)
[2022-12-24] MEDS: oxyCODONE 5 MG TAB PO PRN (16:20)
[2022-12-24] MEDS: cefTRIAXone\\ROCEPHIN 2 GM in Sodium Chloride 0.9% 100 ML IVPB SCH (16:37)
[2022-12-24] MEDS ORDERED: diphenhydrAMINE 25 MG CAP PO SCH (20:15)
[2022-12-24] MEDS: Famotidine 20 MG TAB PO SCH (21:13)
[2022-12-25] MEDS: traMADol HCl 50 MG TAB PO PRN ×2 (02:10→16:45)
[2022-12-25 04:52] LABS: #Eosinphils 0.3 thou/uL (0.0-0.7); #Lymphocytes 1.6 thou/uL (1.20-3.40); #Monocytes 0.8 thou/uL (0.11-0.59); #Neutrophils 13.7 thou/uL (1.40-6.50); %Eosinophils 1.8 % (0.0-10.0); %Lymphocytes 9.7 % (21.0-51.0); %Monocytes 4.9 % (0.0-10.0); %Neutrophils 83.6 % (42.0-75.0); Hemoglobin 6.8 g/dL (12.0-16.0); Mean Corpuscular Hemoglobin 28.8 pg (27.0-31.0); Mean Corpuscular Volume 92.9 fl (78.0-98.0); Mean Platelet Volume 7.2 fL (7.4-10.4); Platelet Count 230 10x3/uL (130-400); RBC Distribution Width 13.7 % (11.5-14.5); Red Blood Cell (RBC) Count 2.35 mill/uL (4.20-5.40); White Blood Cell (WBC) Count 16.3 10x3/uL (4.8-10.8)
[2022-12-25 05:06] LABS: Anion Gap 14 mmol/L (10-20); BUN (Urea Nitrogen) 41 mg/dL (7.0-18.7); Calc. Creatinine Clearance 15 mL/min (70-130); Calcium 8.2 mg/dL (7.8-10.44); Carbon Dioxide 26 mmol/L (22-29); Chloride 102 mmol/L (98-107); Estimated GFR 7; Glucose 112 mg/dL (70-105); Potassium 3.8 mmol/L (3.5-5.1); Sodium 138 mmol/L (136-145)
[2022-12-25] MEDS: oxyCODONE 5 MG TAB PO PRN ×2 (06:21→13:36)
[2022-12-25] MEDS: Ipratropium/Albuterol 3 ML NEB NEB SCH ×4 (07:00→23:13)
[2022-12-25] MEDS: Heparin 5,000 UNITS/ML VIAL SC SCH ×3 (12:18→20:54)
[2022-12-25] MEDS: Acetaminophen 500 MG TAB PO SCH ×3 (12:19→20:52)
[2022-12-25] MEDS: Benzonatate 100 MG CAP PO SCH ×3 (12:20→20:53)
[2022-12-25] MEDS: Sevelamer Carbonate 800 MG TAB PO SCH ×3 (12:20→18:05)
[2022-12-25] MEDS: Triple Antibiotic Oint 1 GM Packet TOP SCH ×3 (13:37→20:54)
[2022-12-25] MEDS: Calcitriol 0.25 MCG CAP PO SCH (13:38)
[2022-12-25] MEDS: Aspirin 81 mg Enteric Coated Tablet PO SCH (13:40)
[2022-12-25] MEDS: guaiFENesin ER 600 MG TAB PO SCH ×2 (13:40→20:53)
[2022-12-25] MEDS: Carvedilol 25 MG TAB PO SCH ×2 (13:41→16:45)
[2022-12-25] MEDS: cefTRIAXone\\ROCEPHIN 2 GM in Sodium Chloride 0.9% 100 ML IVPB SCH (16:47)
[2022-12-25] MEDS: Docusate 100 MG CAP PO SCH ×2 (16:50→20:58)
[2022-12-25] MEDS: Ferrous Gluconate 324 MG TAB PO SCH (16:52)
[2022-12-25] MEDS: Saccharomyces boulardii 250 MG CAP PO SCH (16:53)
[2022-12-25] MEDS: NIFEdipine XL 60 MG TAB PO SCH (16:53)
[2022-12-25] MEDS: Polyethylene Glycol 3350 17 GM Packet PO SCH (16:57)
[2022-12-25] MEDS: Nystatin Powder 15 GM BOT TOP SCH ×2 (17:00→20:54)
[2022-12-25] MEDS: Sodium Bicarbonate Tab 325 MG TAB PO SCH ×2 (18:04→20:54)
[2022-12-25] MEDS: Famotidine 20 MG TAB PO SCH (20:53)
[2022-12-26] MEDS ORDERED: diphenhydrAMINE 25 MG CAP PO SCH (02:15)
[2022-12-26 04:46] LABS: #Basophils 0.1 thou/uL (0.0-0.2); #Eosinphils 0.3 thou/uL (0.0-0.7); #Lymphocytes 1.6 thou/uL (1.20-3.40); #Monocytes 0.9 thou/uL (0.11-0.59); #Neutrophils 12.7 thou/uL (1.40-6.50); %Basophils 0.4 % (0.0-1.0); %Eosinophils 1.8 % (0.0-10.0); %Lymphocytes 10.4 % (21.0-51.0); %Monocytes 5.6 % (0.0-10.0); %Neutrophils 81.9 % (42.0-75.0); Hemoglobin 7.3 g/dL (12.0-16.0); Mean Corpuscular Hemoglobin 28.2 pg (27.0-31.0); Mean Corpuscular Volume 90.9 fl (78.0-98.0); Mean Platelet Volume 7.1 fL (7.4-10.4); Platelet Count 262 10x3/uL (130-400); RBC Distribution Width 16.6 % (11.5-14.5); Red Blood Cell (RBC) Count 2.58 mill/uL (4.20-5.40); White Blood Cell (WBC) Count 15.5 10x3/uL (4.8-10.8)
[2022-12-26 05:16] LABS: Anion Gap 15 mmol/L (10-20); BUN (Urea Nitrogen) 25 mg/dL (7.0-18.7); Calc. Creatinine Clearance 21 mL/min (70-130); Calcium 8.4 mg/dL (7.8-10.44); Carbon Dioxide 27 mmol/L (22-29); Chloride 100 mmol/L (98-107); Estimated GFR 11; Glucose 88 mg/dL (70-105); Potassium 4.1 mmol/L (3.5-5.1); Sodium 138 mmol/L (136-145)
[2022-12-26] MEDS: Ipratropium/Albuterol 3 ML NEB NEB SCH ×2 (07:32→15:36)
[2022-12-26] MEDS: NIFEdipine XL 60 MG TAB PO SCH (08:23)
[2022-12-26] MEDS: Acetaminophen 500 MG TAB PO SCH ×3 (08:23→20:27)
[2022-12-26] MEDS: Calcitriol 0.25 MCG CAP PO SCH (08:23)
[2022-12-26] MEDS: guaiFENesin ER 600 MG TAB PO SCH ×2 (08:23→20:28)
[2022-12-26] MEDS: Aspirin 81 mg Enteric Coated Tablet PO SCH (08:23)
[2022-12-26] MEDS: Sodium Bicarbonate Tab 325 MG TAB PO SCH ×2 (08:23→20:28)
[2022-12-26] MEDS: Saccharomyces boulardii 250 MG CAP PO SCH (08:23)
[2022-12-26] MEDS: Sevelamer Carbonate 800 MG TAB PO SCH ×3 (08:23→17:03)
[2022-12-26] MEDS: Ferrous Gluconate 324 MG TAB PO SCH (08:23)
[2022-12-26] MEDS: Benzonatate 100 MG CAP PO SCH ×3 (08:24→20:27)
[2022-12-26] MEDS: Docusate 100 MG CAP PO SCH ×2 (08:24→20:27)
[2022-12-26] MEDS: Carvedilol 25 MG TAB PO SCH ×2 (08:24→17:03)
[2022-12-26] MEDS: Triple Antibiotic Oint 1 GM Packet TOP SCH ×3 (08:24→20:30)
[2022-12-26] MEDS: Nystatin Powder 15 GM BOT TOP SCH ×2 (08:25→20:30)
[2022-12-26] MEDS: Heparin 5,000 UNITS/ML VIAL SC SCH ×3 (08:25→20:28)
[2022-12-26] MEDS: Polyethylene Glycol 3350 17 GM Packet PO SCH (08:26)
[2022-12-26] MEDS: traMADol HCl 50 MG TAB PO PRN (12:45)
[2022-12-26] MEDS: cefTRIAXone\\ROCEPHIN 2 GM in Sodium Chloride 0.9% 100 ML IVPB SCH (13:52)
[2022-12-26] MEDS: Famotidine 20 MG TAB PO SCH (20:27)
[2022-12-26] MEDS: diphenhydrAMINE 25 MG CAP PO PRN (20:28)
[2022-12-27] MEDS: oxyCODONE 5 MG TAB PO PRN (03:17)
[2022-12-27 04:59] LABS: #Eosinphils 0.3 thou/uL (0.0-0.7); #Lymphocytes 1.3 thou/uL (1.20-3.40); #Monocytes 0.8 thou/uL (0.11-0.59); #Neutrophils 10.7 thou/uL (1.40-6.50); %Basophils 0.3 % (0.0-1.0); %Lymphocytes 10.1 % (21.0-51.0); %Neutrophils 81.6 % (42.0-75.0); Hemoglobin 7.2 g/dL (12.0-16.0); Mean Corpuscular HGB CONC 30.9 g/dL (32.0-36.0); Mean Corpuscular Volume 90.5 fl (78.0-98.0); Mean Platelet Volume 6.8 fL (7.4-10.4); Platelet Count 297 10x3/uL (130-400); RBC Distribution Width 15.9 % (11.5-14.5); Red Blood Cell (RBC) Count 2.56 mill/uL (4.20-5.40); White Blood Cell (WBC) Count 13.1 10x3/uL (4.8-10.8)
[2022-12-27 05:24] LABS: Anion Gap 16 mmol/L (10-20); BUN (Urea Nitrogen) 35 mg/dL (7.0-18.7); Calc. Creatinine Clearance 16 mL/min (70-130); Calcium 8.9 mg/dL (7.8-10.44); Carbon Dioxide 26 mmol/L (22-29); Chloride 99 mmol/L (98-107); Estimated GFR 8; Glucose 99 mg/dL (70-105); Potassium 4.1 mmol/L (3.5-5.1); Sodium 137 mmol/L (136-145)
[2022-12-27] MEDS: Benzonatate 100 MG CAP PO SCH ×3 (08:38→20:23)
[2022-12-27] MEDS: Sevelamer Carbonate 800 MG TAB PO SCH ×3 (08:39→16:20)
[2022-12-27] MEDS: Calcitriol 0.25 MCG CAP PO SCH (08:39)
[2022-12-27] MEDS: Aspirin 81 mg Enteric Coated Tablet PO SCH (08:39)
[2022-12-27] MEDS: Ferrous Gluconate 324 MG TAB PO SCH (08:39)
[2022-12-27] MEDS: Acetaminophen 500 MG TAB PO SCH ×3 (08:41→20:22)
[2022-12-27] MEDS: Triple Antibiotic Oint 1 GM Packet TOP SCH ×3 (08:41→20:25)
[2022-12-27] MEDS: Saccharomyces boulardii 250 MG CAP PO SCH (08:41)
[2022-12-27] MEDS: Docusate 100 MG CAP PO SCH ×2 (08:42→20:24)
[2022-12-27] MEDS: Heparin 5,000 UNITS/ML VIAL SC SCH ×3 (08:42→20:24)
[2022-12-27] MEDS: guaiFENesin ER 600 MG TAB PO SCH ×2 (08:42→20:23)
[2022-12-27] MEDS ORDERED: Heparin 10,000 UNITS/ 10 ML VIAL ONE (08:53)
[2022-12-27] MEDS ORDERED: EPOETIN ALFA-EPBX (ESRD) 10,000 UNIT/ML VIAL SC SCH (09:00)
[2022-12-27] MEDS ORDERED: Tuberculin PPD 0.1 ML VIAL I-DERMAL SCH (10:45)
[2022-12-27] MEDS: Ipratropium/Albuterol 3 ML NEB NEB PRN (14:09)
[2022-12-27] MEDS: cefTRIAXone\\ROCEPHIN 2 GM in Sodium Chloride 0.9% 100 ML IVPB SCH (14:25)
[2022-12-27] MEDS: Carvedilol 25 MG TAB PO SCH ×2 (14:28→16:18)
[2022-12-27] MEDS: NIFEdipine XL 60 MG TAB PO SCH (14:28)
[2022-12-27] MEDS: Nystatin Powder 15 GM BOT TOP SCH ×2 (14:29→20:25)
[2022-12-27] MEDS: Sodium Bicarbonate Tab 325 MG TAB PO SCH ×2 (14:29→20:23)
[2022-12-27] MEDS: Polyethylene Glycol 3350 17 GM Packet PO SCH (14:30)
[2022-12-27] MEDS: Famotidine 20 MG TAB PO SCH (20:23)
[2022-12-27] MEDS: diphenhydrAMINE 25 MG CAP PO PRN (20:32)
[2022-12-27] MEDS: Calcium Carbonate 500 MG ChewTAB PO PRN (20:45)
[2022-12-28] MEDS: oxyCODONE 5 MG TAB PO PRN ×3 (03:02→20:17)
[2022-12-28 06:45] LABS: #Basophils 0.1 thou/uL (0.0-0.2); #Eosinphils 0.2 thou/uL (0.0-0.7); #Lymphocytes 1.4 thou/uL (1.20-3.40); #Monocytes 0.8 thou/uL (0.11-0.59); #Neutrophils 10.3 thou/uL (1.40-6.50); %Basophils 0.5 % (0.0-1.0); %Eosinophils 1.4 % (0.0-10.0); %Lymphocytes 10.6 % (21.0-51.0); %Monocytes 6.5 % (0.0-10.0); Hemoglobin 7.1 g/dL (12.0-16.0); Mean Corpuscular HGB CONC 30.1 g/dL (32.0-36.0); Mean Corpuscular Hemoglobin 27.3 pg (27.0-31.0); Mean Corpuscular Volume 90.6 fl (78.0-98.0); Mean Platelet Volume 6.7 fL (7.4-10.4); Platelet Count 313 10x3/uL (130-400); RBC Distribution Width 15.6 % (11.5-14.5); White Blood Cell (WBC) Count 12.8 10x3/uL (4.8-10.8)
[2022-12-28 07:05] LABS: Anion Gap 14 mmol/L (10-20); BUN (Urea Nitrogen) 22 mg/dL (7.0-18.7); Calc. Creatinine Clearance 21 mL/min (70-130); Calcium 8.8 mg/dL (7.8-10.44); Carbon Dioxide 27 mmol/L (22-29); Chloride 98 mmol/L (98-107); Estimated GFR 11; Glucose 89 mg/dL (70-105); Potassium 4.1 mmol/L (3.5-5.1); Sodium 135 mmol/L (136-145)
[2022-12-28 07:08] LABS: Iron 11 ug/dL (50-170); Iron Binding Capacity, Total 131 mcg/dL (265-497)
[2022-12-28] MEDS: NIFEdipine XL 60 MG TAB PO SCH (09:17)
[2022-12-28] MEDS: Calcitriol 0.25 MCG CAP PO SCH (09:18)
[2022-12-28] MEDS: Carvedilol 25 MG TAB PO SCH ×2 (09:18→16:11)
[2022-12-28] MEDS: Sevelamer Carbonate 800 MG TAB PO SCH ×3 (09:18→16:11)
[2022-12-28] MEDS: guaiFENesin ER 600 MG TAB PO SCH ×2 (09:18→20:16)
[2022-12-28] MEDS: Benzonatate 100 MG CAP PO SCH ×3 (09:18→20:18)
[2022-12-28] MEDS: Sodium Bicarbonate Tab 325 MG TAB PO SCH ×2 (09:18→20:16)
[2022-12-28] MEDS: Aspirin 81 mg Enteric Coated Tablet PO SCH (09:18)
[2022-12-28] MEDS: Saccharomyces boulardii 250 MG CAP PO SCH (09:18)
[2022-12-28] MEDS: Acetaminophen 500 MG TAB PO SCH ×3 (09:19→20:19)
[2022-12-28] MEDS: Ferrous Gluconate 324 MG TAB PO SCH (09:19)
[2022-12-28] MEDS: Docusate 100 MG CAP PO SCH ×2 (09:22→20:16)
[2022-12-28] MEDS: Nystatin Powder 15 GM BOT TOP SCH ×2 (09:22→20:37)
[2022-12-28] MEDS: Polyethylene Glycol 3350 17 GM Packet PO SCH (09:23)
[2022-12-28] MEDS: Heparin 5,000 UNITS/ML VIAL SC SCH ×3 (09:56→20:19)
[2022-12-28] MEDS: Iron, Sodium Ferric Gluconate 250 MG in Sodium Chloride 0.9% 250 ML 250 ML IVPB SCH (10:31)
[2022-12-28] MEDS: Famotidine 20 MG TAB PO SCH (20:17)
[2022-12-28] MEDS: diphenhydrAMINE 25 MG CAP PO PRN (20:18)
[2022-12-29] MEDS: oxyCODONE 5 MG TAB PO PRN ×3 (03:34→21:53)
[2022-12-29 06:40] LABS: #Eosinphils 0.1 thou/uL (0.0-0.7); #Lymphocytes 1.3 thou/uL (1.20-3.40); #Monocytes 0.5 thou/uL (0.11-0.59); #Neutrophils 6.2 thou/uL (1.40-6.50); %Basophils 0.5 % (0.0-1.0); %Eosinophils 1.3 % (0.0-10.0); %Lymphocytes 16.4 % (21.0-51.0); %Monocytes 6.6 % (0.0-10.0); %Neutrophils 75.2 % (42.0-75.0); Hemoglobin 7.9 g/dL (12.0-16.0); Mean Corpuscular HGB CONC 30.2 g/dL (32.0-36.0); Mean Corpuscular Hemoglobin 27.5 pg (27.0-31.0); Mean Platelet Volume 6.9 fL (7.4-10.4); Platelet Count 246 10x3/uL (130-400); RBC Distribution Width 15.4 % (11.5-14.5); Red Blood Cell (RBC) Count 2.89 mill/uL (4.20-5.40); White Blood Cell (WBC) Count 8.2 10x3/uL (4.8-10.8)
[2022-12-29 07:00] LABS: Anion Gap 16 mmol/L (10-20); BUN (Urea Nitrogen) 32 mg/dL (7.0-18.7); Calc. Creatinine Clearance 16 mL/min (70-130); Calcium 8.7 mg/dL (7.8-10.44); Carbon Dioxide 25 mmol/L (22-29); Chloride 100 mmol/L (98-107); Estimated GFR 8; Glucose 86 mg/dL (70-105); Potassium 4.1 mmol/L (3.5-5.1); Sodium 137 mmol/L (136-145)
[2022-12-29] MEDS: Carvedilol 25 MG TAB PO SCH ×2 (08:56→17:12)
[2022-12-29] MEDS: Sevelamer Carbonate 800 MG TAB PO SCH ×3 (08:56→17:12)
[2022-12-29] MEDS: guaiFENesin ER 600 MG TAB PO SCH ×2 (08:56→21:42)
[2022-12-29] MEDS: Acetaminophen 500 MG TAB PO SCH ×3 (08:56→21:39)
[2022-12-29] MEDS: Docusate 100 MG CAP PO SCH ×2 (08:56→21:42)
[2022-12-29] MEDS: Benzonatate 100 MG CAP PO SCH ×3 (08:56→21:38)
[2022-12-29] MEDS: Sodium Bicarbonate Tab 325 MG TAB PO SCH ×2 (08:57→21:38)
[2022-12-29] MEDS: Heparin 5,000 UNITS/ML VIAL SC SCH (08:57)
[2022-12-29] MEDS: Polyethylene Glycol 3350 17 GM Packet PO SCH (08:57)
[2022-12-29] MEDS: Iron, Sodium Ferric Gluconate 250 MG in Sodium Chloride 0.9% 250 ML 250 ML IVPB SCH (10:03)
[2022-12-29] MEDS ORDERED: Heparin 10,000 UNITS/ 10 ML VIAL ONE (10:11)
[2022-12-29] MEDS: Aspirin 81 mg Enteric Coated Tablet PO SCH (11:42)
[2022-12-29] MEDS: Ferrous Gluconate 324 MG TAB PO SCH (14:18)
[2022-12-29] MEDS: NIFEdipine XL 60 MG TAB PO SCH (14:18)
[2022-12-29] MEDS: Calcitriol 0.25 MCG CAP PO SCH (14:18)
[2022-12-29] MEDS: Ergocalciferol 1.25 MG(50,000 UNITS) CAP PO SCH (14:18)
[2022-12-29] MEDS: Saccharomyces boulardii 250 MG CAP PO SCH (14:19)
[2022-12-29] MEDS: Nystatin Powder 15 GM BOT TOP SCH ×2 (14:20→21:44)
[2022-12-29] MEDS: diphenhydrAMINE 25 MG CAP PO PRN ×2 (14:51→21:50)
[2022-12-29] MEDS: Famotidine 20 MG TAB PO SCH (21:38)
[2022-12-30] MEDS: diphenhydrAMINE 25 MG CAP PO PRN (02:30)
[2022-12-30] MEDS: oxyCODONE 5 MG TAB PO PRN (05:43)
[2022-12-30] MEDS: Carvedilol 25 MG TAB PO SCH ×2 (06:57→18:23)
[2022-12-30] MEDS ORDERED: HYDROmorphone 0.5 MG/0.5 ML SYRINGE ONE ×3 (07:19→10:54)
[2022-12-30] MEDS ORDERED: Fentanyl 250 MCG/5 ML VIAL ONE (07:19)
[2022-12-30] MEDS ORDERED: Dexamethasone 4 mg/ml Vial ONE (07:20)
[2022-12-30] MEDS ORDERED: Bupivacaine HCl 0.5%/Epinephrine 1:200,000/PF 30 ml Vial ONE (07:20)
[2022-12-30] MEDS ORDERED: PROPOFOL 200 MG/20 ML VIAL ONE (08:13)
[2022-12-30] MEDS ORDERED: ePHEDrine 50 MG/ML VIAL ONE (08:13)
[2022-12-30] MEDS ORDERED: Ondansetron PF 4 MG/2 ML Vial ONE (08:13)
[2022-12-30] MEDS ORDERED: Dexamethasone 20 MG/5 ML VIAL ONE (08:13)
[2022-12-30] MEDS ORDERED: Rocuronium Bromide 10 MG/ML (10ML VIAL) ONE (08:13)
[2022-12-30] MEDS ORDERED: Lidocaine 1% PF 5 ML VIAL ONE (08:13)
[2022-12-30] MEDS ORDERED: EPINEPHrine 1 MG/10 ML Abboject SYRINGE ONE (08:13)
[2022-12-30] MEDS ORDERED: READ PPD TEST SITE PO SCH (09:00)
[2022-12-30] MEDS ORDERED: Ondansetron HCl/PF 4 MG/2 ML Vial IVP PRN (09:49)
[2022-12-30] MEDS ORDERED: diphenhydrAMINE 50 MG/ML VIAL IVP PRN (09:49)
[2022-12-30] MEDS ORDERED: Ondansetron PF 4 MG/2 ML Vial IVP PRN (09:49)
[2022-12-30] MEDS ORDERED: HYDROmorphone 2 MG/ML VIAL SLOW IVP PRN (09:49)
[2022-12-30] MEDS ORDERED: PACU-Morphine 4MG/ML VIAL SLOW IVP PRN (09:49)
[2022-12-30] MEDS ORDERED: diphenhydrAMINE 50 MG/ML VIAL IM PRN (09:49)
[2022-12-30] MEDS ORDERED: Promethazine HCl 25 MG/ML VIAL IM PRN ×2 (09:49)
[2022-12-30] MEDS ORDERED: Zolpidem Tartrate 5 MG TAB PO PRN (09:49)
[2022-12-30] MEDS ORDERED: Naloxone HCl 0.4 mg/ml Vial IV PRN (09:49)
[2022-12-30] MEDS ORDERED: Communication Order-Pharmacy FS SCH (10:00)
[2022-12-30] MEDS: Ferrous Gluconate 324 MG TAB PO SCH (14:04)
[2022-12-30] MEDS: Acetaminophen 500 MG TAB PO SCH ×3 (14:04→21:44)
[2022-12-30] MEDS: Sevelamer Carbonate 800 MG TAB PO SCH ×2 (14:04→18:23)
[2022-12-30] MEDS: Docusate 100 MG CAP PO SCH ×2 (14:05→21:45)
[2022-12-30] MEDS: guaiFENesin ER 600 MG TAB PO SCH ×2 (14:05→21:45)
[2022-12-30] MEDS: Benzonatate 100 MG CAP PO SCH ×3 (14:05→21:45)
[2022-12-30] MEDS: Calcitriol 0.25 MCG CAP PO SCH (14:05)
[2022-12-30] MEDS: Aspirin 81 mg Enteric Coated Tablet PO SCH (14:05)
[2022-12-30] MEDS: NIFEdipine XL 60 MG TAB PO SCH (14:06)
[2022-12-30] MEDS: Sodium Bicarbonate Tab 325 MG TAB PO SCH ×2 (14:07→21:45)
[2022-12-30] MEDS: Polyethylene Glycol 3350 17 GM Packet PO SCH (14:07)
[2022-12-30] MEDS: Saccharomyces boulardii 250 MG CAP PO SCH (14:07)
[2022-12-30] MEDS: Nystatin Powder 15 GM BOT TOP SCH ×2 (14:07→21:45)
[2022-12-30] MEDS: Iron, Sodium Ferric Gluconate 250 MG in Sodium Chloride 0.9% 250 ML 250 ML IVPB SCH (14:58)
[2022-12-30] MEDS: Famotidine 20 MG TAB PO SCH (21:45)
[2022-12-31] MEDS: diphenhydrAMINE 25 MG CAP PO PRN ×3 (00:03→19:57)
[2022-12-31] MEDS: guaiFENesin ER 600 MG TAB PO SCH ×2 (09:20→19:53)
[2022-12-31] MEDS: Docusate 100 MG CAP PO SCH ×2 (09:20→19:53)
[2022-12-31] MEDS: Polyethylene Glycol 3350 17 GM Packet PO SCH (09:20)
[2022-12-31] MEDS: Sodium Bicarbonate Tab 325 MG TAB PO SCH ×2 (09:20→19:52)
[2022-12-31] MEDS: Aspirin 81 mg Enteric Coated Tablet PO SCH (09:20)
[2022-12-31] MEDS: Ferrous Gluconate 324 MG TAB PO SCH (09:20)
[2022-12-31] MEDS: Carvedilol 25 MG TAB PO SCH ×2 (09:20→16:42)
[2022-12-31] MEDS: Sevelamer Carbonate 800 MG TAB PO SCH ×3 (09:21→16:43)
[2022-12-31] MEDS: Calcitriol 0.25 MCG CAP PO SCH (09:21)
[2022-12-31] MEDS: HYDROmorphone 10 mg/100 ml CADD IVPB PRN (09:21)
[2022-12-31] MEDS: Benzonatate 100 MG CAP PO SCH ×3 (09:21→19:53)
[2022-12-31] MEDS: NIFEdipine XL 60 MG TAB PO SCH (09:21)
[2022-12-31] MEDS: Saccharomyces boulardii 250 MG CAP PO SCH (09:21)
[2022-12-31] MEDS: Acetaminophen 500 MG TAB PO SCH ×3 (09:21→19:52)
[2022-12-31] MEDS: Nystatin Powder 15 GM BOT TOP SCH ×2 (09:22→20:00)
[2022-12-31] MEDS: Iron, Sodium Ferric Gluconate 250 MG in Sodium Chloride 0.9% 250 ML 250 ML IVPB SCH (11:35)
[2022-12-31 12:45] LABS: #Basophils 0.1 thou/uL (0.0-0.2); #Eosinphils 0.1 thou/uL (0.0-0.7); #Lymphocytes 1.5 thou/uL (1.20-3.40); #Monocytes 0.8 thou/uL (0.11-0.59); #Neutrophils 10.2 thou/uL (1.40-6.50); %Basophils 0.4 % (0.0-1.0); %Eosinophils 0.5 % (0.0-10.0); %Monocytes 6.6 % (0.0-10.0); %Neutrophils 80.4 % (42.0-75.0); Mean Corpuscular HGB CONC 30.2 g/dL (32.0-36.0); Mean Corpuscular Hemoglobin 28.3 pg (27.0-31.0); Mean Corpuscular Volume 93.5 fl (78.0-98.0); Mean Platelet Volume 6.6 fL (7.4-10.4); Platelet Count 284 10x3/uL (130-400); RBC Distribution Width 14.9 % (11.5-14.5); Red Blood Cell (RBC) Count 2.13 mill/uL (4.20-5.40); White Blood Cell (WBC) Count 12.6 10x3/uL (4.8-10.8)
[2022-12-31 13:08] LABS: Albumin 2.6 g/dL (3.5-5.0); Anion Gap 15 mmol/L (10-20); BUN (Urea Nitrogen) 31 mg/dL (7.0-18.7); BUN/Creatinine Ratio 5.16; Calc. Creatinine Clearance 16 mL/min (70-130); Calcium 8.3 mg/dL (7.8-10.44); Carbon Dioxide 23 mmol/L (22-29); Chloride 99 mmol/L (98-107); Estimated GFR 8; Glucose 125 mg/dL (70-105); Phosphorus 7.4 mg/dL (2.3-4.7); Sodium 132 mmol/L (136-145)
[2022-12-31] MEDS: Ipratropium/Albuterol 3 ML NEB NEB PRN (17:11)
[2022-12-31] MEDS: Calcium Carbonate 500 MG ChewTAB PO PRN (19:51)
[2022-12-31] MEDS: Famotidine 20 MG TAB PO SCH (19:53)
[2023-01-01] MEDS: diphenhydrAMINE 25 MG CAP PO PRN ×2 (04:55→20:30)
[2023-01-01] MEDS: HYDROmorphone 10 mg/100 ml CADD IVPB PRN ×2 (05:52→22:13)
[2023-01-01 06:42] LABS: #Basophils 0.1 thou/uL (0.0-0.2); #Eosinphils 0.2 thou/uL (0.0-0.7); #Lymphocytes 1.5 thou/uL (1.20-3.40); #Monocytes 0.7 thou/uL (0.11-0.59); %Basophils 0.7 % (0.0-1.0); %Eosinophils 1.9 % (0.0-10.0); %Neutrophils 74.4 % (42.0-75.0); Mean Corpuscular HGB CONC 31.9 g/dL (32.0-36.0); Mean Corpuscular Hemoglobin 29.6 pg (27.0-31.0); Mean Corpuscular Volume 92.8 fl (78.0-98.0); Mean Platelet Volume 6.3 fL (7.4-10.4); Platelet Count 244 10x3/uL (130-400); RBC Distribution Width 14.8 % (11.5-14.5); Red Blood Cell (RBC) Count 2.02 mill/uL (4.20-5.40); White Blood Cell (WBC) Count 9.4 10x3/uL (4.8-10.8)
[2023-01-01 06:52] LABS: Albumin 2.2 g/dL (3.5-5.0); Anion Gap 15 mmol/L (10-20); BUN (Urea Nitrogen) 40 mg/dL (7.0-18.7); BUN/Creatinine Ratio 5.75; Calc. Creatinine Clearance 14 mL/min (70-130); Calcium 8.2 mg/dL (7.8-10.44); Carbon Dioxide 25 mmol/L (22-29); Chloride 101 mmol/L (98-107); Estimated GFR 7; Glucose 100 mg/dL (70-105); Phosphorus 6.7 mg/dL (2.3-4.7); Potassium 5.3 mmol/L (3.5-5.1); Sodium 136 mmol/L (136-145)
[2023-01-01] MEDS ORDERED: Heparin 10,000 UNITS/ 10 ML VIAL ONE (09:38)
[2023-01-01] MEDS: Sevelamer Carbonate 800 MG TAB PO SCH ×3 (10:05→16:38)
[2023-01-01] MEDS: Carvedilol 25 MG TAB PO SCH ×2 (10:05→16:38)
[2023-01-01] MEDS: guaiFENesin ER 600 MG TAB PO SCH ×2 (10:06→20:30)
[2023-01-01] MEDS: Benzonatate 100 MG CAP PO SCH ×3 (10:06→20:30)
[2023-01-01] MEDS: Nystatin Powder 15 GM BOT TOP SCH ×2 (10:06→21:00)
[2023-01-01] MEDS: Docusate 100 MG CAP PO SCH ×2 (10:06→20:30)
[2023-01-01] MEDS: Acetaminophen 500 MG TAB PO SCH ×3 (10:06→20:30)
[2023-01-01] MEDS: Polyethylene Glycol 3350 17 GM Packet PO SCH (10:07)
[2023-01-01] MEDS: Sodium Bicarbonate Tab 325 MG TAB PO SCH (10:07)
[2023-01-01] MEDS: Ferrous Gluconate 324 MG TAB PO SCH (14:55)
[2023-01-01] MEDS: Calcitriol 0.25 MCG CAP PO SCH (14:56)
[2023-01-01] MEDS: Saccharomyces boulardii 250 MG CAP PO SCH (14:56)
[2023-01-01] MEDS: Aspirin 81 mg Enteric Coated Tablet PO SCH (14:56)
[2023-01-01] MEDS: Famotidine 20 MG TAB PO SCH (20:30)
[2023-01-02] MEDS: Sodium Bicarbonate Tab 325 MG TAB PO SCH ×3 (00:17→19:32)
[2023-01-02] MEDS: diphenhydrAMINE 25 MG CAP PO PRN (00:17)
[2023-01-02] MEDS: Ipratropium/Albuterol 3 ML NEB NEB PRN (07:18)
[2023-01-02] MEDS: Sevelamer Carbonate 800 MG TAB PO SCH ×3 (10:29→16:01)
[2023-01-02] MEDS: Aspirin 81 mg Enteric Coated Tablet PO SCH (10:29)
[2023-01-02] MEDS: Carvedilol 25 MG TAB PO SCH ×2 (10:29→16:01)
[2023-01-02] MEDS: Ferrous Gluconate 324 MG TAB PO SCH (10:29)
[2023-01-02] MEDS: Docusate 100 MG CAP PO SCH ×2 (10:30→19:33)
[2023-01-02] MEDS: Calcitriol 0.25 MCG CAP PO SCH (10:30)
[2023-01-02] MEDS: guaiFENesin ER 600 MG TAB PO SCH ×2 (10:30→19:31)
[2023-01-02] MEDS: Benzonatate 100 MG CAP PO SCH ×3 (10:30→19:32)
[2023-01-02] MEDS: Nystatin Powder 15 GM BOT TOP SCH ×2 (10:32→20:09)
[2023-01-02] MEDS: Polyethylene Glycol 3350 17 GM Packet PO SCH (10:32)
[2023-01-02] MEDS: Saccharomyces boulardii 250 MG CAP PO SCH (10:33)
[2023-01-02] MEDS: Acetaminophen 500 MG TAB PO SCH ×3 (10:46→20:09)
[2023-01-02 12:10] LABS: Anion Gap 13 mmol/L (10-20); BUN (Urea Nitrogen) 26 mg/dL (7.0-18.7); Calc. Creatinine Clearance 20 mL/min (70-130); Carbon Dioxide 29 mmol/L (22-29); Chloride 97 mmol/L (98-107); Estimated GFR 10; Glucose 90 mg/dL (70-105); Sodium 134 mmol/L (136-145)
[2023-01-02 16:26] LABS: #Basophils 0.2 thou/uL (0.0-0.2); #Eosinphils 0.3 thou/uL (0.0-0.7); #Lymphocytes 1.5 thou/uL (1.20-3.40); #Monocytes 0.6 thou/uL (0.11-0.59); %Basophils 1.8 % (0.0-1.0); %Eosinophils 3.1 % (0.0-10.0); %Lymphocytes 15.1 % (21.0-51.0); %Monocytes 6.5 % (0.0-10.0); %Neutrophils 73.5 % (42.0-75.0); Hemoglobin 7.1 g/dL (12.0-16.0); Mean Corpuscular HGB CONC 32.4 g/dL (32.0-36.0); Mean Corpuscular Hemoglobin 30.1 pg (27.0-31.0); Mean Corpuscular Volume 92.8 fl (78.0-98.0); Mean Platelet Volume 6.4 fL (7.4-10.4); Platelet Count 260 10x3/uL (130-400); RBC Distribution Width 14.9 % (11.5-14.5); Red Blood Cell (RBC) Count 2.35 mill/uL (4.20-5.40); White Blood Cell (WBC) Count 9.6 10x3/uL (4.8-10.8)
[2023-01-02] MEDS: oxyCODONE/Acetaminophen 5 mg/325 mg Tablet PO PRN ×2 (19:31→23:41)
[2023-01-02] MEDS: Famotidine 20 MG TAB PO SCH (19:33)
[2023-01-03] MEDS: Aspirin/APAP/Caffeine Tab (Excedrin Migraine) PO PRN (02:25)
[2023-01-03] MEDS: oxyCODONE/Acetaminophen 5 mg/325 mg Tablet PO PRN ×4 (03:47→20:31)
[2023-01-03 05:32] LABS: #Basophils 0.1 thou/uL (0.0-0.2); #Eosinphils 0.2 thou/uL (0.0-0.7); #Lymphocytes 1.5 thou/uL (1.20-3.40); #Monocytes 0.5 thou/uL (0.11-0.59); #Neutrophils 7.6 thou/uL (1.40-6.50); %Basophils 0.8 % (0.0-1.0); %Eosinophils 2.4 % (0.0-10.0); %Lymphocytes 15.5 % (21.0-51.0); %Monocytes 5.2 % (0.0-10.0); %Neutrophils 76.2 % (42.0-75.0); Hemoglobin 6.6 g/dL (12.0-16.0); Mean Corpuscular HGB CONC 32.4 g/dL (32.0-36.0); Mean Corpuscular Hemoglobin 30.1 pg (27.0-31.0); Mean Corpuscular Volume 92.7 fl (78.0-98.0); Mean Platelet Volume 6.5 fL (7.4-10.4); Platelet Count 260 10x3/uL (130-400); RBC Distribution Width 14.7 % (11.5-14.5); White Blood Cell (WBC) Count 9.9 10x3/uL (4.8-10.8)
[2023-01-03 05:49] LABS: Anion Gap 12 mmol/L (10-20); BUN (Urea Nitrogen) 33 mg/dL (7.0-18.7); Calc. Creatinine Clearance 18 mL/min (70-130); Carbon Dioxide 25 mmol/L (22-29); Chloride 102 mmol/L (98-107); Estimated GFR 9; Glucose 93 mg/dL (70-105); Potassium 4.7 mmol/L (3.5-5.1); Sodium 134 mmol/L (136-145)
[2023-01-03] MEDS: Sevelamer Carbonate 800 MG TAB PO SCH ×3 (07:53→17:29)
[2023-01-03] MEDS: Docusate 100 MG CAP PO SCH ×2 (07:53→20:25)
[2023-01-03] MEDS: Sodium Bicarbonate Tab 325 MG TAB PO SCH ×2 (07:53→20:25)
[2023-01-03] MEDS: Ferrous Gluconate 324 MG TAB PO SCH (07:53)
[2023-01-03] MEDS: Acetaminophen 500 MG TAB PO SCH ×3 (07:54→20:25)
[2023-01-03] MEDS: Carvedilol 25 MG TAB PO SCH ×2 (07:54→17:29)
[2023-01-03] MEDS: Benzonatate 100 MG CAP PO SCH ×3 (07:54→20:25)
[2023-01-03] MEDS: Saccharomyces boulardii 250 MG CAP PO SCH (07:54)
[2023-01-03] MEDS: Polyethylene Glycol 3350 17 GM Packet PO SCH (07:54)
[2023-01-03] MEDS: Aspirin 81 mg Enteric Coated Tablet PO SCH (07:54)
[2023-01-03] MEDS: guaiFENesin ER 600 MG TAB PO SCH ×2 (07:55→20:25)
[2023-01-03] MEDS ORDERED: Heparin 10,000 UNITS/ 10 ML VIAL ONE (08:40)
[2023-01-03] MEDS ORDERED: NIFEdipine XL 60 MG TAB PO SCH (09:14)
[2023-01-03] MEDS ORDERED: NIFEdipine XL 30 MG TAB PO SCH (09:45)
[2023-01-03] MEDS: Nystatin Powder 15 GM BOT TOP SCH ×2 (11:11→20:26)
[2023-01-03] MEDS: Calcitriol 0.25 MCG CAP PO SCH (11:11)
[2023-01-03] MEDS: diphenhydrAMINE 25 MG CAP PO PRN (14:47)
[2023-01-03] MEDS: Famotidine 20 MG TAB PO SCH (20:25)
[2023-01-04 04:17] LABS: #Eosinphils 0.3 thou/uL (0.0-0.7); #Lymphocytes 1.5 thou/uL (1.20-3.40); #Monocytes 0.6 thou/uL (0.11-0.59); %Basophils 0.2 % (0.0-1.0); %Eosinophils 3.4 % (0.0-10.0); %Lymphocytes 15.7 % (21.0-51.0); %Monocytes 6.1 % (0.0-10.0); %Neutrophils 74.6 % (42.0-75.0); Hemoglobin 8.5 g/dL (12.0-16.0); Mean Corpuscular HGB CONC 31.8 g/dL (32.0-36.0); Mean Corpuscular Hemoglobin 29.3 pg (27.0-31.0); Mean Corpuscular Volume 92.2 fl (78.0-98.0); Platelet Count 302 10x3/uL (130-400); RBC Distribution Width 15.3 % (11.5-14.5); White Blood Cell (WBC) Count 9.4 10x3/uL (4.8-10.8)
[2023-01-04 04:43] LABS: Anion Gap 14 mmol/L (10-20); BUN (Urea Nitrogen) 22 mg/dL (7.0-18.7); Calc. Creatinine Clearance 23 mL/min (70-130); Carbon Dioxide 28 mmol/L (22-29); Chloride 100 mmol/L (98-107); Estimated GFR 12; Glucose 86 mg/dL (70-105); Potassium 4.8 mmol/L (3.5-5.1); Sodium 137 mmol/L (136-145)
[2023-01-04] MEDS: oxyCODONE/Acetaminophen 5 mg/325 mg Tablet PO PRN ×3 (06:37→23:51)
[2023-01-04] MEDS: Polyethylene Glycol 3350 17 GM Packet PO SCH (08:08)
[2023-01-04] MEDS: Calcitriol 0.25 MCG CAP PO SCH (08:09)
[2023-01-04] MEDS: Ergocalciferol 1.25 MG(50,000 UNITS) CAP PO SCH (08:09)
[2023-01-04] MEDS: NIFEdipine XL 30 MG TAB PO SCH (08:12)
[2023-01-04] MEDS: Ferrous Gluconate 324 MG TAB PO SCH (08:12)
[2023-01-04] MEDS: Benzonatate 100 MG CAP PO SCH ×3 (08:13→20:43)
[2023-01-04] MEDS: Acetaminophen 500 MG TAB PO SCH ×3 (08:13→20:42)
[2023-01-04] MEDS: Saccharomyces boulardii 250 MG CAP PO SCH (08:13)
[2023-01-04] MEDS: Carvedilol 25 MG TAB PO SCH ×2 (08:14→16:22)
[2023-01-04] MEDS: guaiFENesin ER 600 MG TAB PO SCH ×2 (08:14→20:43)
[2023-01-04] MEDS: Docusate 100 MG CAP PO SCH ×2 (08:14→20:43)
[2023-01-04] MEDS: Sevelamer Carbonate 800 MG TAB PO SCH ×3 (08:14→16:21)
[2023-01-04] MEDS: Aspirin 81 mg Enteric Coated Tablet PO SCH (08:14)
[2023-01-04] MEDS: Nystatin Powder 15 GM BOT TOP SCH ×3 (08:16→22:35)
[2023-01-04] MEDS: Sodium Bicarbonate Tab 325 MG TAB PO SCH ×2 (09:58→20:43)
[2023-01-04] MEDS: Famotidine 20 MG TAB PO SCH (20:40)
[2023-01-04] MEDS: diphenhydrAMINE 25 MG CAP PO PRN (20:43)
[2023-01-05] MEDS: oxyCODONE/Acetaminophen 5 mg/325 mg Tablet PO PRN ×3 (05:53→18:30)
[2023-01-05] MEDS ORDERED: Heparin 10,000 UNITS/ 10 ML VIAL ONE (10:14)
[2023-01-05] MEDS: Acetaminophen 500 MG TAB PO SCH ×3 (11:27→21:25)
[2023-01-05] MEDS: Ferrous Gluconate 324 MG TAB PO SCH (14:31)
[2023-01-05] MEDS: diphenhydrAMINE 25 MG CAP PO PRN (14:31)
[2023-01-05] MEDS: NIFEdipine XL 30 MG TAB PO SCH (14:32)
[2023-01-05] MEDS: Sodium Bicarbonate Tab 325 MG TAB PO SCH ×2 (14:32→21:27)
[2023-01-05] MEDS: Saccharomyces boulardii 250 MG CAP PO SCH (14:33)
[2023-01-05] MEDS: guaiFENesin ER 600 MG TAB PO SCH ×2 (14:33→21:27)
[2023-01-05] MEDS: Sevelamer Carbonate 800 MG TAB PO SCH ×3 (14:33→18:26)
[2023-01-05] MEDS: Carvedilol 25 MG TAB PO SCH ×2 (14:33→18:26)
[2023-01-05] MEDS: Aspirin 81 mg Enteric Coated Tablet PO SCH (14:34)
[2023-01-05] MEDS: Docusate 100 MG CAP PO SCH ×2 (14:34→21:28)
[2023-01-05] MEDS: Polyethylene Glycol 3350 17 GM Packet PO SCH (14:35)
[2023-01-05] MEDS: Benzonatate 100 MG CAP PO SCH ×3 (14:36→21:27)
[2023-01-05] MEDS: Nystatin Powder 15 GM BOT TOP SCH ×2 (14:42→22:12)
[2023-01-05] MEDS: Ergocalciferol 1.25 MG(50,000 UNITS) CAP PO SCH (14:42)
[2023-01-05] MEDS: Calcitriol 0.25 MCG CAP PO SCH (14:42)
[2023-01-05] MEDS: Famotidine 20 MG TAB PO SCH (21:27)
[2023-01-06] MEDS: oxyCODONE/Acetaminophen 5 mg/325 mg Tablet PO PRN ×2 (00:02→05:41)
[2023-01-06 06:01] LABS: #Eosinphils 0.4 thou/uL (0.0-0.7); #Lymphocytes 1.6 thou/uL (1.20-3.40); #Monocytes 0.6 thou/uL (0.11-0.59); %Basophils 0.2 % (0.0-1.0); %Eosinophils 4.3 % (0.0-10.0); %Monocytes 6.3 % (0.0-10.0); %Neutrophils 72.3 % (42.0-75.0); Hemoglobin 8.9 g/dL (12.0-16.0); Mean Corpuscular HGB CONC 31.9 g/dL (32.0-36.0); Mean Corpuscular Hemoglobin 29.4 pg (27.0-31.0); Mean Corpuscular Volume 92.3 fl (78.0-98.0); Mean Platelet Volume 6.1 fL (7.4-10.4); Platelet Count 283 10x3/uL (130-400); RBC Distribution Width 14.7 % (11.5-14.5); Red Blood Cell (RBC) Count 3.03 mill/uL (4.20-5.40); White Blood Cell (WBC) Count 9.6 10x3/uL (4.8-10.8)
[2023-01-06 06:19] LABS: Albumin 2.8 g/dL (3.5-5.0); Anion Gap 14 mmol/L (10-20); BUN (Urea Nitrogen) 26 mg/dL (7.0-18.7); BUN/Creatinine Ratio 5.63; Calc. Creatinine Clearance 21 mL/min (70-130); Carbon Dioxide 28 mmol/L (22-29); Chloride 97 mmol/L (98-107); Estimated GFR 11; Glucose 89 mg/dL (70-105); Phosphorus 5.5 mg/dL (2.3-4.7); Potassium 4.6 mmol/L (3.5-5.1); Sodium 134 mmol/L (136-145)
[2023-01-06] MEDS: Sevelamer Carbonate 800 MG TAB PO SCH ×2 (07:55→11:54)
[2023-01-06] MEDS: Ferrous Gluconate 324 MG TAB PO SCH (07:55)
[2023-01-06] MEDS: Carvedilol 25 MG TAB PO SCH (07:55)
[2023-01-06 08:21] VITALS: BP 137/78; TEMP 99
[2023-01-06] MEDS: Acetaminophen 500 MG TAB PO SCH (08:38)
[2023-01-06] MEDS: Calcitriol 0.25 MCG CAP PO SCH (08:40)
[2023-01-06] MEDS: Aspirin 81 mg Enteric Coated Tablet PO SCH (08:41)
[2023-01-06] MEDS: NIFEdipine XL 30 MG TAB PO SCH (08:41)
[2023-01-06] MEDS: Benzonatate 100 MG CAP PO SCH (08:42)
[2023-01-06] MEDS: Sodium Bicarbonate Tab 325 MG TAB PO SCH (08:42)
[2023-01-06] MEDS: Docusate 100 MG CAP PO SCH (08:42)
[2023-01-06] MEDS: Polyethylene Glycol 3350 17 GM Packet PO SCH (08:44)
[2023-01-06] MEDS: Saccharomyces boulardii 250 MG CAP PO SCH (08:44)
[2023-01-06] MEDS: Nystatin Powder 15 GM BOT TOP SCH (11:54)
[2023-01-06] MEDS: guaiFENesin ER 600 MG TAB PO SCH (11:54)
== END 2023-01-06 16:02 | disposition home or self-care (01) | DRG 853 ==
LOC: ERS 11:56 → IMCU/EMU 15:49 → 2NO 12-17 04:42 → MSONC 01-02 23:37
PROVIDERS: ADMIT Family Medicine; ATTEND Internal Medicine
PROC: 3E03329 Introduction of Other Anti-infective into Peripheral Vein, Percutaneous Approach (ICD-10-PCS; 2022-12-14)
PROC: 30233N1 Transfusion of Nonautologous Red Blood Cells into Peripheral Vein, Percutaneous Approach (ICD-10-PCS; 2022-12-14)
PROC: 4A133R1 Monitoring of Arterial Saturation, Peripheral, Percutaneous Approach (ICD-10-PCS; 2022-12-14)
PROC: 0JH63XZ Insertion of Tunneled Vascular Access Device into Chest Subcutaneous Tissue and Fascia, Percutaneous Approach (ICD-10-PCS; 2022-12-19)
PROC: 02HV33Z Insertion of Infusion Device into Superior Vena Cava, Percutaneous Approach (ICD-10-PCS; 2022-12-19)
PROC: B548ZZA Ultrasonography of Superior Vena Cava, Guidance (ICD-10-PCS; 2022-12-19)
PROC: 5A1D70Z Performance of Urinary Filtration, Intermittent, Less than 6 Hours Per Day (ICD-10-PCS; 2022-12-19)
PROC: 031C0ZF Bypass Left Radial Artery to Lower Arm Vein, Open Approach (ICD-10-PCS; principal; 2022-12-24)
PROC: 0WHG43Z Insertion of Infusion Device into Peritoneal Cavity, Percutaneous Endoscopic Approach (ICD-10-PCS; 2022-12-24)
PROC: 0W993ZZ Drainage of Right Pleural Cavity, Percutaneous Approach (ICD-10-PCS; 2022-12-24)
PROC: 0BNK0ZZ Release Right Lung, Open Approach (ICD-10-PCS; 2022-12-30)
PROC: 0BCN0ZZ Extirpation of Matter from Right Pleura, Open Approach (ICD-10-PCS; 2022-12-30)
DX: A40.3 Sepsis due to Streptococcus pneumoniae (principal); J13 Pneumonia due to Streptococcus pneumoniae; J96.01 Acute respiratory failure with hypoxia; N18.6 End stage renal disease; R65.20 Severe sepsis without septic shock; J86.9 Pyothorax without fistula; M31.19 Other thrombotic microangiopathy; E87.20 Acidosis, unspecified; N17.9 Acute kidney failure, unspecified; I13.2 Hypertensive heart and chronic kidney disease with heart failure and with stage 5 chronic kidney disease, or end stage renal disease; E87.1 Hypo-osmolality and hyponatremia; N25.81 Secondary hyperparathyroidism of renal origin; J91.8 Pleural effusion in other conditions classified elsewhere; J98.11 Atelectasis; J94.2 Hemothorax; Z20.822 Contact with and (suspected) exposure to COVID-19; D63.1 Anemia in chronic kidney disease; R94.31 Abnormal electrocardiogram [ECG] [EKG]; E87.5 Hyperkalemia; I87.2 Venous insufficiency (chronic) (peripheral); I50.9 Heart failure, unspecified; D50.9 Iron deficiency anemia, unspecified; G43.909 Migraine, unspecified, not intractable, without status migrainosus; E55.9 Vitamin D deficiency, unspecified; E83.39 Other disorders of phosphorus metabolism; Z28.311 Partially vaccinated for COVID-19; Z88.8 Allergy status to other drugs, medicaments and biological substances; Z79.899 Other long term (current) drug therapy; Z98.51 Tubal ligation status; Z68.31 Body mass index [BMI] 31.0-31.9, adult
CPT/HCPCS: 36415; 36430; 36600; 71045; 71046; 71250; 80048; 80053; 80069; 82010; 82150; 82274; 82306; 82553; 82728; 82805; 82945; 83540; 83550; 83605; 83615; 83880; 83930; 83970; 83986; 84100; 84145; 84155; 84157; 84478; 84484; 85025; 85060; 85379; 85610; 85730; 86140; 86580; 86704; 86850; 86900; 86901; 87040; 87070; 87077; 87116; 87149; 87186; 87205; 87206; 87804; 87811; 88112; 88305; 89051; 90935; 93005; 93306; 93970; 94640; 94760; 96365; 96366; 96375; C1751; C1752; C1776; G0257; J0171; J0456; J0696; J1100; J1170; J1200; J1644; J2001; J2020; J2250; J2270; J2272; J2370; J2405; J2704; J2720; J2765; J2916; J3010; J3490; J7050; J7070; J7620; P9016; Q0162; Q5105; S0028; U0002

== ENCOUNTER 2023-01-23 14:09 | Outpatient (CLI) | payer OTHER | END 2023-01-23 14:10 | disposition home or self-care (01) | LOC: RAD 14:09 | PROVIDERS: ATTEND Thoracic Surgery (Cardiothoracic Vascular Surgery) | DX: J86.9 Pyothorax without fistula (principal); I51.7 Cardiomegaly; J98.4 Other disorders of lung | CPT/HCPCS: 71046 ==

== ENCOUNTER 2023-10-18 06:36 | Inpatient (IN) | payer OTHER, SELFPAY ==
[2023-10-18] MEDS ORDERED: Acetaminophen 500 MG TAB ONE (06:53)
[2023-10-18 07:03] LABS: #Monocytes 0.7 thou/uL (0.11-0.59); #Neutrophils 13.4 thou/uL (1.40-6.50); %Basophils 0.2 % (0.0-1.0); %Lymphocytes 3.9 % (21.0-51.0); %Monocytes 4.5 % (0.0-10.0); %Neutrophils 90.7 % (42.0-75.0); Hematocrit 23.6 % (36.0-47.0); Hemoglobin 7.6 g/dL (12.0-16.0); Mean Corpuscular HGB CONC 32.2 g/dL (32.0-36.0); Mean Corpuscular Hemoglobin 32.3 pg (27.0-31.0); Mean Corpuscular Volume 100.4 fl (78.0-98.0); Mean Platelet Volume 9.7 fL (7.4-10.4); RBC Distribution Width 13.3 % (11.5-14.5); Red Blood Cell (RBC) Count 2.35 mill/uL (4.20-5.40); White Blood Cell (WBC) Count 14.7 10x3/uL (4.8-10.8)
[2023-10-18] MEDS ORDERED: Cefepime 2 GM VIAL ONE (07:12)
[2023-10-18] MEDS ORDERED: Sodium Chloride 0.9% 100 ML ONE (07:12)
[2023-10-18] MEDS ORDERED: Cefepime 2 GM in Sodium Chloride 0.9% 100 ML IVPB SCH (07:15)
[2023-10-18] MEDS ORDERED: Vancomycin (BATCH) 2 GM in Premix 1 BAG IVPB SCH (07:15)
[2023-10-18 07:17] LABS: Platelet Count 74 10x3/uL (130-400)
[2023-10-18 07:23] LABS: Manual Diff?? YES
[2023-10-18 07:26] LABS: ALT (SGPT) Less than 7 U/L (8-55); AST (SGOT) 9 U/L (5-34); Albumin 2.8 g/dL (3.5-5.0); Alkaline Phosphatase 104 U/L (40-110); Anion Gap 19 mmol/L (10-20); BUN (Urea Nitrogen) 53 mg/dL (7.0-18.7); Bilirubin, Total 0.6 mg/dL (0.2-1.2); Calc. Creatinine Clearance 0 mL/min (70-130); Calcium 7.4 mg/dL (7.8-10.44); Carbon Dioxide 15 mmol/L (22-29); Chloride 102 mmol/L (98-107); Estimated GFR 5; Globulin 2.6 g/dL (2.4-3.5); Glucose 96 mg/dL (70-105); Lipase Less than 4 U/L (8-78); Magnesium 1.3 mg/dL (1.6-2.6); Potassium 3.7 mmol/L (3.5-5.1); Protein, Total 5.4 g/dL (6.0-8.3); Sodium 132 mmol/L (136-145)
[2023-10-18 07:35] LABS: Troponin I 0.069 ng/mL (< 0.028)
[2023-10-18 07:47] LABS: Band 22 % (5-11); CellaVision Operator ID LAB.GE; Lymphocytes 5 % (21-51); Macrocytosis SLIGHT = 6-15 cells HPF (0-5); Metamyelocyte 3 % (0-0); Monocytes 1 % (0-10); Neutrophil 69 % (42-75); Platelet Adequacy Comment Platelets Decreased; Polychromasia SLIGHT = 2-3 cells HPF (0-2); Total Cell Count 99; Vacuoles SLIGHT
[2023-10-18 07:56] LABS: SARS-CoV-2 NAA Rapid Test Not Detected (NotDetected)
[2023-10-18] MEDS ORDERED: Magnesium 2 GM/50 ML BAG (IN WATER) ONE (08:02)
[2023-10-18] MEDS ORDERED: ABX IVPB PRN (09:18)
[2023-10-18] MEDS ORDERED: VANCOMYCIN IVPB PRN (09:18)
[2023-10-18 10:29] LABS: Troponin I 0.081 ng/mL (< 0.028)
[2023-10-18] MEDS ORDERED: Sodium Chloride 0.9% 500 ML IV SCH ×3 (10:45→19:00)
[2023-10-18] MEDS: Acetaminophen 325 MG TAB PO PRN ×2 (11:00→16:44)
[2023-10-18] MEDS ORDERED: Vancomycin Dialysis Sliding Scale (Wt > 99) FS SCH (11:30)
[2023-10-18 14:50] LABS: Troponin I 0.085 ng/mL (< 0.028)
[2023-10-18] MEDS ORDERED: Heparin 5,000 UNITS/ML VIAL SC SCH (15:00)
[2023-10-18] MEDS: EPOETIN ALFA-EPBX (ESRD) 10,000 UNITS/ML VIAL SC SCH (16:41)
[2023-10-18] MEDS ORDERED: Ketorolac Tromethamine 30 MG/ML VIAL IVP SCH (17:15)
[2023-10-18] MEDS ORDERED: Vancomycin 1 GM in Sodium Chloride 0.9% 250 ML 300 ML IVPB SCH (21:00)
[2023-10-19] MEDS: Acetaminophen 325 MG TAB PO PRN ×4 (02:13→17:44)
[2023-10-19 05:44] LABS: Hematocrit 31.7 % (36.0-47.0); Hemoglobin 10.3 g/dL (12.0-16.0); Mean Corpuscular HGB CONC 32.5 g/dL (32.0-36.0); Mean Corpuscular Hemoglobin 32.4 pg (27.0-31.0); Mean Corpuscular Volume 99.7 fl (78.0-98.0); Mean Platelet Volume 9.7 fL (7.4-10.4); RBC Distribution Width 14.4 % (11.5-14.5); Red Blood Cell (RBC) Count 3.18 mill/uL (4.20-5.40); White Blood Cell (WBC) Count 8.6 10x3/uL (4.8-10.8)
[2023-10-19 05:54] LABS: Platelet Count 61 10x3/uL (130-400)
[2023-10-19 05:55] LABS: Delete Auto Diff?? YES; Manual Diff?? YES
[2023-10-19 06:19] LABS: ALT (SGPT) Less than 7 U/L (8-55); AST (SGOT) 11 U/L (5-34); Albumin 3.1 g/dL (3.5-5.0); Alkaline Phosphatase 126 U/L (40-110); Anion Gap 16 mmol/L (10-20); BUN (Urea Nitrogen) 34 mg/dL (7.0-18.7); Calc. Creatinine Clearance 18 mL/min (70-130); Calcium 9.4 mg/dL (7.8-10.44); Carbon Dioxide 25 mmol/L (22-29); Chloride 97 mmol/L (98-107); Estimated GFR 7; Globulin 3.3 g/dL (2.4-3.5); Glucose 101 mg/dL (70-105); Potassium 3.6 mmol/L (3.5-5.1); Protein, Total 6.4 g/dL (6.0-8.3); Sodium 134 mmol/L (136-145)
[2023-10-19] MEDS: Ondansetron ODT 4 MG TAB PO PRN ×2 (06:32→17:48)
[2023-10-19 06:42] LABS: Band 16 % (5-11); CellaVision Operator ID lab.sh2; Lymphocytes 3 % (21-51); Macrocytosis SLIGHT = 6-15 cells HPF (0-5); Neutrophil 80 % (42-75); Ovalocytes SLIGHT = 2-5 cells HPF (0-1); Platelet Adequacy Comment Platelets Decreased; Polychromasia SLIGHT = 2-3 cells HPF (0-2); RBC Morphology Within Normal Limits; Smudge Cells 6.7 %; Total Cell Count 104; Vacuoles SLIGHT
[2023-10-19] MEDS ORDERED: Albumin 25% 25 GM/100 ML BOT IVPB SCH (09:26)
[2023-10-19] MEDS: Sevelamer Carbonate 800 MG TAB PO SCH ×3 (09:32→17:44)
[2023-10-19] MEDS ORDERED: Lidocaine 2% PF 5 ML VIAL FS SCH (12:45)
[2023-10-19] MEDS ORDERED: Lidocaine 2% 20 ml MDV SC SCH (12:45)
[2023-10-19] MEDS ORDERED: SODIUM CHLORIDE IVPB SCH (17:00)
[2023-10-19] MEDS ORDERED: ADMIXTURE FEE IVPB SCH (17:00)
[2023-10-19] MEDS ORDERED: CEFEPIME IVPB SCH (17:00)
[2023-10-19] MEDS: Bisacodyl 5 MG TAB PO PRN (21:32)
[2023-10-20] MEDS: Acetaminophen 325 MG TAB PO PRN ×2 (00:03→06:52)
[2023-10-20 05:11] LABS: Troponin I 0.152 ng/mL (< 0.028)
[2023-10-20] MEDS ORDERED: Epoetin (ESRD) 20,000 UNITS/ML MDV SC SCH (08:45)
[2023-10-20] MEDS: Sevelamer Carbonate 800 MG TAB PO SCH ×3 (09:13→17:30)
[2023-10-20] MEDS: HYDROcodone/Acetaminophen 10/325 mg Tablet PO PRN ×3 (11:40→21:51)
[2023-10-20] MEDS: Oxacillin 2 GM in Sodium Chloride 0.9% 100 ML IVPB SCH ×3 (13:05→21:25)
[2023-10-20] MEDS ORDERED: diphenhydrAMINE 25 MG CAP PO SCH (22:00)
[2023-10-21] MEDS: Oxacillin 2 GM in Sodium Chloride 0.9% 100 ML IVPB SCH ×6 (00:45→20:30)
[2023-10-21] MEDS: Sevelamer Carbonate 800 MG TAB PO SCH ×3 (07:35→17:53)
[2023-10-21] MEDS: HYDROcodone/Acetaminophen 10/325 mg Tablet PO PRN ×2 (07:35→17:53)
[2023-10-21 07:37] LABS: #Eosinphils 0.2 thou/uL (0.0-0.7); #Monocytes 0.9 thou/uL (0.11-0.59); %Basophils 0.4 % (0.0-1.0); %Eosinophils 1.9 % (0.0-10.0); %Lymphocytes 9.7 % (21.0-51.0); %Monocytes 9.4 % (0.0-10.0); %Neutrophils 77.6 % (42.0-75.0); Hematocrit 30.3 % (36.0-47.0); Hemoglobin 9.9 g/dL (12.0-16.0); Mean Corpuscular HGB CONC 32.7 g/dL (32.0-36.0); Mean Corpuscular Hemoglobin 31.6 pg (27.0-31.0); Mean Corpuscular Volume 96.8 fl (78.0-98.0); Mean Platelet Volume 10.2 fL (7.4-10.4); RBC Distribution Width 13.8 % (11.5-14.5); Red Blood Cell (RBC) Count 3.13 mill/uL (4.20-5.40)
[2023-10-21 07:39] LABS: Platelet Count 88 10x3/uL (130-400)
[2023-10-21 07:57] LABS: Anion Gap 19 mmol/L (10-20); BUN (Urea Nitrogen) 57 mg/dL (7.0-18.7); Calc. Creatinine Clearance 11 mL/min (70-130); Calcium 9.1 mg/dL (7.8-10.44); Carbon Dioxide 22 mmol/L (22-29); Chloride 94 mmol/L (98-107); Estimated GFR 4; Glucose 111 mg/dL (70-105); Potassium 3.4 mmol/L (3.5-5.1); Sodium 132 mmol/L (136-145)
[2023-10-21] MEDS: Bisacodyl 5 MG TAB PO PRN (20:38)
[2023-10-21] MEDS: Acetaminophen 325 MG TAB PO PRN (20:39)
[2023-10-22] MEDS: Oxacillin 2 GM in Sodium Chloride 0.9% 100 ML IVPB SCH ×6 (00:19→20:24)
[2023-10-22] MEDS: HYDROcodone/Acetaminophen 10/325 mg Tablet PO PRN ×2 (05:28→12:52)
[2023-10-22] MEDS: diphenhydrAMINE 25 MG CAP PO PRN (08:44)
[2023-10-22] MEDS: Sevelamer Carbonate 800 MG TAB PO SCH ×3 (08:44→17:00)
[2023-10-22 12:13] LABS: #Basophils 0.1 thou/uL (0.0-0.2); #Eosinphils 0.2 thou/uL (0.0-0.7); #Monocytes 1.1 thou/uL (0.11-0.59); #Neutrophils 10.4 thou/uL (1.40-6.50); %Basophils 0.5 % (0.0-1.0); %Eosinophils 1.5 % (0.0-10.0); %Lymphocytes 9.5 % (21.0-51.0); %Monocytes 8.2 % (0.0-10.0); %Neutrophils 78.1 % (42.0-75.0); Hematocrit 33.9 % (36.0-47.0); Hemoglobin 11.1 g/dL (12.0-16.0); Mean Corpuscular HGB CONC 32.7 g/dL (32.0-36.0); Mean Corpuscular Hemoglobin 31.9 pg (27.0-31.0); Mean Corpuscular Volume 97.4 fl (78.0-98.0); Mean Platelet Volume 9.7 fL (7.4-10.4); Platelet Count 136 10x3/uL (130-400); Red Blood Cell (RBC) Count 3.48 mill/uL (4.20-5.40); White Blood Cell (WBC) Count 13.3 10x3/uL (4.8-10.8)
[2023-10-22 12:41] LABS: Anion Gap 19 mmol/L (10-20); BUN (Urea Nitrogen) 38 mg/dL (7.0-18.7); Calc. Creatinine Clearance 15 mL/min (70-130); Calcium 9.8 mg/dL (7.8-10.44); Carbon Dioxide 23 mmol/L (22-29); Chloride 94 mmol/L (98-107); Estimated GFR 6; Glucose 91 mg/dL (70-105); Potassium 3.6 mmol/L (3.5-5.1); Sodium 132 mmol/L (136-145)
[2023-10-23] MEDS: Oxacillin 2 GM in Sodium Chloride 0.9% 100 ML IVPB SCH ×6 (01:03→21:24)
[2023-10-23] MEDS: HYDROcodone/Acetaminophen 10/325 mg Tablet PO PRN ×3 (01:03→21:23)
[2023-10-23] MEDS: diphenhydrAMINE 25 MG CAP PO PRN ×3 (01:03→21:23)
[2023-10-23 04:16] LABS: #Eosinphils 0.2 thou/uL (0.0-0.7); #Monocytes 0.9 thou/uL (0.11-0.59); #Neutrophils 7.8 thou/uL (1.40-6.50); %Basophils 0.4 % (0.0-1.0); %Eosinophils 2.2 % (0.0-10.0); %Lymphocytes 10.4 % (21.0-51.0); %Monocytes 8.8 % (0.0-10.0); %Neutrophils 73.6 % (42.0-75.0); Mean Corpuscular HGB CONC 32.3 g/dL (32.0-36.0); Mean Corpuscular Hemoglobin 31.6 pg (27.0-31.0); Mean Corpuscular Volume 98.1 fl (78.0-98.0); Mean Platelet Volume 9.6 fL (7.4-10.4); Platelet Count 152 10x3/uL (130-400); Red Blood Cell (RBC) Count 3.16 mill/uL (4.20-5.40); White Blood Cell (WBC) Count 10.6 10x3/uL (4.8-10.8)
[2023-10-23 04:45] LABS: Anion Gap 20 mmol/L (10-20); BUN (Urea Nitrogen) 47 mg/dL (7.0-18.7); Calc. Creatinine Clearance 13 mL/min (70-130); Calcium 9.1 mg/dL (7.8-10.44); Carbon Dioxide 22 mmol/L (22-29); Chloride 94 mmol/L (98-107); Estimated GFR 5; Glucose 90 mg/dL (70-105); Potassium 3.6 mmol/L (3.5-5.1); Sodium 132 mmol/L (136-145)
[2023-10-23] MEDS: Sevelamer Carbonate 800 MG TAB PO SCH ×3 (11:50→17:00)
[2023-10-23] MEDS: Carvedilol 3.125 MG TAB PO SCH ×2 (11:51→14:48)
[2023-10-23] MEDS: Ferrous Gluconate 324 MG TAB PO SCH (12:13)
[2023-10-23] MEDS: Aspirin Chewable 81 MG TAB PO SCH (12:13)
[2023-10-23] MEDS: Aquaphor 10 GM TUBE TOP SCH ×2 (13:11→21:24)
[2023-10-23] MEDS: Bisacodyl 5 MG TAB PO PRN (21:23)
[2023-10-24] MEDS: Oxacillin 2 GM in Sodium Chloride 0.9% 100 ML IVPB SCH ×6 (01:13→20:08)
[2023-10-24 04:06] LABS: #Eosinphils 0.2 thou/uL (0.0-0.7); #Monocytes 0.8 thou/uL (0.11-0.59); #Neutrophils 5.5 thou/uL (1.40-6.50); %Basophils 0.5 % (0.0-1.0); %Eosinophils 2.1 % (0.0-10.0); %Neutrophils 67.4 % (42.0-75.0); Hematocrit 31.2 % (36.0-47.0); Hemoglobin 9.9 g/dL (12.0-16.0); Mean Corpuscular HGB CONC 31.7 g/dL (32.0-36.0); Mean Corpuscular Hemoglobin 31.2 pg (27.0-31.0); Mean Corpuscular Volume 98.4 fl (78.0-98.0); Mean Platelet Volume 9.2 fL (7.4-10.4); Platelet Count 193 10x3/uL (130-400); RBC Distribution Width 13.9 % (11.5-14.5); Red Blood Cell (RBC) Count 3.17 mill/uL (4.20-5.40); White Blood Cell (WBC) Count 8.2 10x3/uL (4.8-10.8)
[2023-10-24 04:33] LABS: Anion Gap 17 mmol/L (10-20); BUN (Urea Nitrogen) 26 mg/dL (7.0-18.7); Calc. Creatinine Clearance 17 mL/min (70-130); Calcium 9.1 mg/dL (7.8-10.44); Carbon Dioxide 24 mmol/L (22-29); Chloride 95 mmol/L (98-107); Estimated GFR 7; Glucose 89 mg/dL (70-105); Potassium 3.3 mmol/L (3.5-5.1); Sodium 133 mmol/L (136-145)
[2023-10-24] MEDS: Aspirin Chewable 81 MG TAB PO SCH (09:17)
[2023-10-24] MEDS: Carvedilol 3.125 MG TAB PO SCH ×2 (09:18→17:05)
[2023-10-24] MEDS: Sevelamer Carbonate 800 MG TAB PO SCH ×3 (09:18→17:26)
[2023-10-24] MEDS: Ferrous Gluconate 324 MG TAB PO SCH (09:18)
[2023-10-24] MEDS: Aquaphor 10 GM TUBE TOP SCH ×2 (09:19→20:09)
[2023-10-24] MEDS: diphenhydrAMINE 25 MG CAP PO PRN (17:28)
[2023-10-24] MEDS: HYDROcodone/Acetaminophen 5/325 mg Tablet PO PRN (19:17)
[2023-10-24] MEDS: Bisacodyl 5 MG TAB PO PRN (20:08)
[2023-10-25] MEDS: Oxacillin 2 GM in Sodium Chloride 0.9% 100 ML IVPB SCH ×5 (01:10→21:53)
[2023-10-25] MEDS: diphenhydrAMINE 25 MG CAP PO PRN ×2 (01:13→23:48)
[2023-10-25] MEDS: HYDROcodone/Acetaminophen 5/325 mg Tablet PO PRN (03:40)
[2023-10-25 04:53] LABS: #Eosinphils 0.3 thou/uL (0.0-0.7); #Monocytes 0.7 thou/uL (0.11-0.59); #Neutrophils 6.7 thou/uL (1.40-6.50); %Basophils 0.4 % (0.0-1.0); %Eosinophils 3.7 % (0.0-10.0); %Monocytes 7.9 % (0.0-10.0); %Neutrophils 72.6 % (42.0-75.0); Hematocrit 28.2 % (36.0-47.0); Hemoglobin 9.1 g/dL (12.0-16.0); Mean Corpuscular HGB CONC 32.3 g/dL (32.0-36.0); Mean Corpuscular Hemoglobin 31.7 pg (27.0-31.0); Mean Corpuscular Volume 98.3 fl (78.0-98.0); Platelet Count 230 10x3/uL (130-400); Red Blood Cell (RBC) Count 2.87 mill/uL (4.20-5.40); White Blood Cell (WBC) Count 9.2 10x3/uL (4.8-10.8)
[2023-10-25 05:22] LABS: Anion Gap 19 mmol/L (10-20); BUN (Urea Nitrogen) 36 mg/dL (7.0-18.7); Calc. Creatinine Clearance 13 mL/min (70-130); Calcium 8.6 mg/dL (7.8-10.44); Carbon Dioxide 23 mmol/L (22-29); Chloride 97 mmol/L (98-107); Estimated GFR 6; Glucose 88 mg/dL (70-105); Potassium 3.4 mmol/L (3.5-5.1); Sodium 136 mmol/L (136-145)
[2023-10-25] MEDS ORDERED: Heparin 10,000 UNITS/ 10 ML VIAL ONE (08:43)
[2023-10-25] MEDS: Carvedilol 3.125 MG TAB PO SCH ×2 (12:37→19:50)
[2023-10-25] MEDS: Aquaphor 10 GM TUBE TOP SCH ×2 (12:37→23:40)
[2023-10-25] MEDS: Sevelamer Carbonate 800 MG TAB PO SCH ×2 (12:37→19:49)
[2023-10-25] MEDS: Ferrous Gluconate 324 MG TAB PO SCH (12:37)
[2023-10-25] MEDS: Aspirin Chewable 81 MG TAB PO SCH (12:38)
[2023-10-25] MEDS ORDERED: Lidocaine 1% PF 5 ML VIAL ONE ×2 (12:50→13:11)
[2023-10-25] MEDS ORDERED: PROPOFOL 200 MG/20 ML VIAL ONE (13:11)
[2023-10-25] MEDS ORDERED: PROPOFOL 20 ML ONE (13:18)
[2023-10-25] MEDS: HYDROcodone/Acetaminophen 10/325 mg Tablet PO PRN (19:49)
[2023-10-25] MEDS: EPOETIN ALFA-EPBX (ESRD) 10,000 UNITS/ML VIAL SC SCH (19:49)
[2023-10-25] MEDS: Acetaminophen 325 MG TAB PO PRN (23:47)
[2023-10-26] MEDS: Oxacillin 2 GM in Sodium Chloride 0.9% 100 ML IVPB SCH ×6 (01:12→21:33)
[2023-10-26] MEDS: Sevelamer Carbonate 800 MG TAB PO SCH ×3 (09:35→16:49)
[2023-10-26] MEDS: Aspirin Chewable 81 MG TAB PO SCH (09:35)
[2023-10-26] MEDS: Carvedilol 3.125 MG TAB PO SCH ×2 (09:35→16:49)
[2023-10-26] MEDS: Ferrous Gluconate 324 MG TAB PO SCH (09:35)
[2023-10-26] MEDS: Aquaphor 10 GM TUBE TOP SCH ×2 (09:36→21:32)
[2023-10-26] MEDS: HYDROcodone/Acetaminophen 5/325 mg Tablet PO PRN (09:46)
[2023-10-26] MEDS: Bisacodyl 5 MG TAB PO PRN (13:46)
[2023-10-26] MEDS: Ondansetron ODT 4 MG TAB PO PRN ×2 (16:49→22:21)
[2023-10-27] MEDS: Oxacillin 2 GM in Sodium Chloride 0.9% 100 ML IVPB SCH ×6 (01:16→21:01)
[2023-10-27 05:28] LABS: #Basophils 0.1 thou/uL (0.0-0.2); #Eosinphils 0.2 thou/uL (0.0-0.7); #Monocytes 0.8 thou/uL (0.11-0.59); #Neutrophils 7.9 thou/uL (1.40-6.50); %Basophils 0.6 % (0.0-1.0); %Eosinophils 2.3 % (0.0-10.0); %Lymphocytes 13.8 % (21.0-51.0); %Monocytes 7.2 % (0.0-10.0); %Neutrophils 74.4 % (42.0-75.0); Hematocrit 31.2 % (36.0-47.0); Hemoglobin 9.7 g/dL (12.0-16.0); Mean Corpuscular HGB CONC 31.1 g/dL (32.0-36.0); Mean Corpuscular Hemoglobin 30.7 pg (27.0-31.0); Mean Corpuscular Volume 98.7 fl (78.0-98.0); Mean Platelet Volume 8.7 fL (7.4-10.4); Platelet Count 268 10x3/uL (130-400); Red Blood Cell (RBC) Count 3.16 mill/uL (4.20-5.40); White Blood Cell (WBC) Count 10.6 10x3/uL (4.8-10.8)
[2023-10-27 06:06] LABS: Anion Gap 18 mmol/L (10-20); BUN (Urea Nitrogen) 29 mg/dL (7.0-18.7); Calc. Creatinine Clearance 13 mL/min (70-130); Calcium 8.9 mg/dL (7.8-10.44); Carbon Dioxide 24 mmol/L (22-29); Chloride 99 mmol/L (98-107); Estimated GFR 5; Glucose 98 mg/dL (70-105); Potassium 3.5 mmol/L (3.5-5.1); Sodium 137 mmol/L (136-145)
[2023-10-27] MEDS: Sevelamer Carbonate 800 MG TAB PO SCH ×3 (09:35→18:07)
[2023-10-27] MEDS: Aspirin Chewable 81 MG TAB PO SCH (09:35)
[2023-10-27] MEDS: Carvedilol 3.125 MG TAB PO SCH ×2 (09:36→18:06)
[2023-10-27] MEDS: Ferrous Gluconate 324 MG TAB PO SCH (09:36)
[2023-10-27] MEDS: diphenhydrAMINE 25 MG CAP PO PRN ×2 (09:36→23:06)
[2023-10-27] MEDS: Aquaphor 10 GM TUBE TOP SCH ×2 (09:39→21:01)
[2023-10-27] MEDS: HYDROcodone/Acetaminophen 10/325 mg Tablet PO PRN (21:02)
[2023-10-28] MEDS: Oxacillin 2 GM in Sodium Chloride 0.9% 100 ML IVPB SCH ×6 (01:03→23:23)
[2023-10-28 06:42] LABS: #Basophils 0.1 thou/uL (0.0-0.2); #Eosinphils 0.2 thou/uL (0.0-0.7); #Monocytes 0.5 thou/uL (0.11-0.59); #Neutrophils 6.4 thou/uL (1.40-6.50); %Basophils 0.7 % (0.0-1.0); %Eosinophils 2.7 % (0.0-10.0); %Lymphocytes 17.7 % (21.0-51.0); %Monocytes 5.1 % (0.0-10.0); Hematocrit 29.7 % (36.0-47.0); Hemoglobin 9.5 g/dL (12.0-16.0); Mean Corpuscular Hemoglobin 31.8 pg (27.0-31.0); Mean Corpuscular Volume 99.3 fl (78.0-98.0); Mean Platelet Volume 8.7 fL (7.4-10.4); Platelet Count 264 10x3/uL (130-400); Red Blood Cell (RBC) Count 2.99 mill/uL (4.20-5.40); White Blood Cell (WBC) Count 8.9 10x3/uL (4.8-10.8)
[2023-10-28 07:09] LABS: Anion Gap 21 mmol/L (10-20); BUN (Urea Nitrogen) 36 mg/dL (7.0-18.7); Calc. Creatinine Clearance 11 mL/min (70-130); Calcium 8.8 mg/dL (7.8-10.44); Carbon Dioxide 20 mmol/L (22-29); Chloride 101 mmol/L (98-107); Estimated GFR 4; Glucose 104 mg/dL (70-105); Potassium 3.8 mmol/L (3.5-5.1); Sodium 138 mmol/L (136-145)
[2023-10-28] MEDS: Sevelamer Carbonate 800 MG TAB PO SCH ×3 (08:14→18:02)
[2023-10-28] MEDS ORDERED: Heparin 10,000 UNITS/ 10 ML VIAL ONE (08:43)
[2023-10-28 09:49] VITALS: BMI 34.7
[2023-10-28] MEDS: Carvedilol 3.125 MG TAB PO SCH ×2 (12:43→18:02)
[2023-10-28] MEDS: Aquaphor 10 GM TUBE TOP SCH ×2 (12:43→20:55)
[2023-10-28] MEDS: HYDROcodone/Acetaminophen 10/325 mg Tablet PO PRN ×2 (13:09→20:54)
[2023-10-28] MEDS: Bisacodyl 5 MG TAB PO PRN (13:10)
[2023-10-28] MEDS: Aspirin Chewable 81 MG TAB PO SCH (13:10)
[2023-10-28] MEDS: Ferrous Gluconate 324 MG TAB PO SCH (13:10)
[2023-10-28] MEDS: diphenhydrAMINE 25 MG CAP PO PRN (20:54)
[2023-10-29] MEDS: Oxacillin 2 GM in Sodium Chloride 0.9% 100 ML IVPB SCH ×4 (02:18→14:59)
[2023-10-29] MEDS: diphenhydrAMINE 25 MG CAP PO PRN (03:05)
[2023-10-29 04:27] LABS: #Basophils 0.1 thou/uL (0.0-0.2); #Eosinphils 0.2 thou/uL (0.0-0.7); #Monocytes 0.5 thou/uL (0.11-0.59); #Neutrophils 5.8 thou/uL (1.40-6.50); %Eosinophils 2.3 % (0.0-10.0); %Lymphocytes 17.4 % (21.0-51.0); %Monocytes 6.6 % (0.0-10.0); %Neutrophils 70.9 % (42.0-75.0); Hematocrit 32.8 % (36.0-47.0); Mean Corpuscular HGB CONC 30.5 g/dL (32.0-36.0); Mean Corpuscular Volume 101.5 fl (78.0-98.0); Mean Platelet Volume 8.7 fL (7.4-10.4); Platelet Count 250 10x3/uL (130-400); RBC Distribution Width 14.1 % (11.5-14.5); Red Blood Cell (RBC) Count 3.23 mill/uL (4.20-5.40); White Blood Cell (WBC) Count 8.2 10x3/uL (4.8-10.8)
[2023-10-29 05:01] LABS: Anion Gap 19 mmol/L (10-20); BUN (Urea Nitrogen) 20 mg/dL (7.0-18.7); Calc. Creatinine Clearance 16 mL/min (70-130); Calcium 8.9 mg/dL (7.8-10.44); Carbon Dioxide 23 mmol/L (22-29); Chloride 100 mmol/L (98-107); Estimated GFR 7; Glucose 89 mg/dL (70-105); Potassium 3.6 mmol/L (3.5-5.1); Sodium 138 mmol/L (136-145)
[2023-10-29] MEDS: Sevelamer Carbonate 800 MG TAB PO SCH ×2 (09:37→11:36)
[2023-10-29] MEDS: Aspirin Chewable 81 MG TAB PO SCH (09:37)
[2023-10-29] MEDS: Aquaphor 10 GM TUBE TOP SCH (09:37)
[2023-10-29] MEDS: Carvedilol 3.125 MG TAB PO SCH ×2 (09:37→16:38)
[2023-10-29] MEDS: Ferrous Gluconate 324 MG TAB PO SCH (09:37)
[2023-10-29 16:41] VITALS: BP 120/63; TEMP 98.3
== END 2023-10-29 18:17 | disposition home or self-care (01) | DRG 280 ==
LOC: ERS 06:36 → SUATTDRO 06:36 → 2SE 10:33 → T4-A 10-20 13:30 → 2NO 10-22 22:15
PROVIDERS: ADMIT Internal Medicine; ATTEND Internal Medicine
PROC: 3E03329 Introduction of Other Anti-infective into Peripheral Vein, Percutaneous Approach (ICD-10-PCS; 2023-10-18)
PROC: 0JPT0XZ Removal of Tunneled Vascular Access Device from Trunk Subcutaneous Tissue and Fascia, Open Approach (ICD-10-PCS; principal; 2023-10-19)
PROC: 30233J1 Transfusion of Nonautologous Serum Albumin into Peripheral Vein, Percutaneous Approach (ICD-10-PCS; 2023-10-19)
PROC: 5A1D70Z Performance of Urinary Filtration, Intermittent, Less than 6 Hours Per Day (ICD-10-PCS; 2023-10-21)
PROC: B24BZZ4 Ultrasonography of Heart with Aorta, Transesophageal (ICD-10-PCS; 2023-10-25)
PROC: 5A1D70Z Performance of Urinary Filtration, Intermittent, Less than 6 Hours Per Day (ICD-10-PCS; 2023-10-25)
PROC: 5A1D70Z Performance of Urinary Filtration, Intermittent, Less than 6 Hours Per Day (ICD-10-PCS; 2023-10-28)
DX: T80.211A Bloodstream infection due to central venous catheter, initial encounter (principal); A41.01 Sepsis due to Methicillin susceptible Staphylococcus aureus; I21.A1 Myocardial infarction type 2; I33.0 Acute and subacute infective endocarditis; N18.6 End stage renal disease; I13.2 Hypertensive heart and chronic kidney disease with heart failure and with stage 5 chronic kidney disease, or end stage renal disease; E87.1 Hypo-osmolality and hyponatremia; I95.9 Hypotension, unspecified; J45.909 Unspecified asthma, uncomplicated; D63.1 Anemia in chronic kidney disease; I50.9 Heart failure, unspecified; I08.1 Rheumatic disorders of both mitral and tricuspid valves; I70.0 Atherosclerosis of aorta; Z88.8 Allergy status to other drugs, medicaments and biological substances; Z79.82 Long term (current) use of aspirin; Z79.899 Other long term (current) drug therapy; Z79.2 Long term (current) use of antibiotics; Z99.2 Dependence on renal dialysis; Z98.890 Other specified postprocedural states; Z98.51 Tubal ligation status; Z11.52 Encounter for screening for COVID-19; Z98.891 History of uterine scar from previous surgery; Z84.1 Family history of disorders of kidney and ureter; Y84.8 Other medical procedures as the cause of abnormal reaction of the patient, or of later complication, without mention of misadventure at the time of the procedure; E87.6 Hypokalemia
CPT/HCPCS: 36415; 36416; 36430; 71045; 80048; 80053; 83605; 83690; 83735; 83880; 84484; 85025; 86140; 86850; 86900; 86901; 87040; 87070; 87077; 87149; 87186; 87205; 90935; 93005; 93306; 93312; 96365; 96366; 96367; 96368; G0257; J0692; J1644; J1885; J2700; J2704; J3370; J3475; J3490; J7030; P9016; P9047; Q0162; Q5105

== ENCOUNTER 2023-12-23 08:53 | Emergency (ER) | payer OTHER ==
[2023-12-23 10:48] LABS: #Basophils 0.1 thou/uL (0.0-0.2); #Eosinphils 0.4 thou/uL (0.0-0.7); #Monocytes 0.3 thou/uL (0.11-0.59); #Neutrophils 4.1 thou/uL (1.40-6.50); %Basophils 0.9 % (0.0-1.0); %Eosinophils 6.6 % (0.0-10.0); %Lymphocytes 23.6 % (21.0-51.0); %Monocytes 5.3 % (0.0-10.0); %Neutrophils 63.3 % (42.0-75.0); Hematocrit 35.5 % (36.0-47.0); Hemoglobin 11.6 g/dL (12.0-16.0); Mean Corpuscular HGB CONC 32.7 g/dL (32.0-36.0); Mean Corpuscular Hemoglobin 31.1 pg (27.0-31.0); Mean Corpuscular Volume 95.2 fl (78.0-98.0); Mean Platelet Volume 9.2 fL (7.4-10.4); Platelet Count 180 10x3/uL (130-400); RBC Distribution Width 13.3 % (11.5-14.5); Red Blood Cell (RBC) Count 3.73 mill/uL (4.20-5.40); White Blood Cell (WBC) Count 6.4 10x3/uL (4.8-10.8)
[2023-12-23 11:20] LABS: ALT (SGPT) Less than 7 U/L (8-55); AST (SGOT) 10 U/L (5-34); Albumin 3.6 g/dL (3.5-5.0); Alkaline Phosphatase 189 U/L (40-110); Anion Gap 19 mmol/L (10-20); BUN (Urea Nitrogen) 78 mg/dL (7.0-18.7); Bilirubin, Total 0.5 mg/dL (0.2-1.2); Calc. Creatinine Clearance 0 mL/min (70-130); Calcium 9.6 mg/dL (7.8-10.44); Carbon Dioxide 24 mmol/L (22-29); Chloride 94 mmol/L (98-107); Estimated GFR 4; Globulin 3.9 g/dL (2.4-3.5); Glucose 90 mg/dL (70-105); Magnesium 2.7 mg/dL (1.6-2.6); Potassium 5.1 mmol/L (3.5-5.1); Protein, Total 7.5 g/dL (6.0-8.3); Sodium 132 mmol/L (136-145)
[2023-12-23 11:27] LABS: Phosphorus 9.4 mg/dL (2.3-4.7)
== END 2023-12-23 13:21 | disposition home or self-care (01) ==
LOC: ERS 08:53
DX: T85.01XA Breakdown (mechanical) of ventricular intracranial (communicating) shunt, initial encounter (principal); N28.9 Disorder of kidney and ureter, unspecified; I10 Essential (primary) hypertension; Z79.899 Other long term (current) drug therapy
CPT/HCPCS: 36415; 71045; 80053; 83735; 84100; 85025

== ENCOUNTER 2024-01-18 18:02 | Emergency (ER) | payer OTHER ==
[2024-01-18] MEDS ORDERED: Lidocaine 1% (PF) 30 ML VIAL ONE (18:31)
[2024-01-18] MEDS ORDERED: Bacitracin 1 PK ONE (19:40)
== END 2024-01-18 19:47 | disposition home or self-care (01) ==
LOC: ERS 18:02
DX: S61.215A Laceration without foreign body of left ring finger without damage to nail, initial encounter (principal); I12.0 Hypertensive chronic kidney disease with stage 5 chronic kidney disease or end stage renal disease; N18.6 End stage renal disease; W01.198A Fall on same level from slipping, tripping and stumbling with subsequent striking against other object, initial encounter; Z99.2 Dependence on renal dialysis
CPT/HCPCS: 12002; 99283; J2001

== ENCOUNTER 2024-03-31 09:52 | Outpatient (CLI) | payer OTHER | END 2024-03-31 09:53 | disposition home or self-care (01) | LOC: BICMRI 09:52 | PROVIDERS: ATTEND Orthopaedic Surgery | DX: S82.13 Fracture of medial condyle of tibia (principal); S83.242A Other tear of medial meniscus, current injury, left knee, initial encounter; S83.282A Other tear of lateral meniscus, current injury, left knee, initial encounter; M94.28 Chondromalacia, other site; M25.48 Effusion, other site ==